=== PATIENT | female | born 1940 | race Caucasian/White ===

== ENCOUNTER → 2018-02-01 07:43 | Outpatient (CLI) | payer MEDICARE, OTHER, SELFPAY | PROVIDERS: PCP Family Medicine; Visit Provider Orthopaedic Surgery | DX: M25.512 Pain in left shoulder (principal); M75.112 Incomplete rotator cuff tear or rupture of left shoulder, not specified as traumatic; Z01.818 Encounter for other preprocedural examination ==

== ENCOUNTER → 2018-02-20 09:15 | Outpatient (CLI) | payer MEDICARE, OTHER, SELFPAY | PROVIDERS: PCP Family Medicine; Visit Provider Orthopaedic Surgery | DX: Z47.89 Encounter for other orthopedic aftercare (principal); M75.112 Incomplete rotator cuff tear or rupture of left shoulder, not specified as traumatic; J44.9 Chronic obstructive pulmonary disease, unspecified ==

== ENCOUNTER → 2018-03-20 11:10 | Outpatient (BNVA) | payer MEDICARE, OTHER, SELFPAY | PROVIDERS: PCP Family Medicine; Visit Provider Orthopaedic Surgery | DX: Z47.89 Encounter for other orthopedic aftercare (principal); M75.112 Incomplete rotator cuff tear or rupture of left shoulder, not specified as traumatic ==

== ENCOUNTER → 2018-05-01 11:01 | Outpatient (BNVA) | payer MEDICARE, OTHER, SELFPAY | PROVIDERS: PCP Family Medicine; Referring Provider Family Medicine; Visit Provider Orthopaedic Surgery | DX: Z47.89 Encounter for other orthopedic aftercare (principal); M75.112 Incomplete rotator cuff tear or rupture of left shoulder, not specified as traumatic; J44.9 Chronic obstructive pulmonary disease, unspecified ==

== ENCOUNTER → 2018-07-05 10:46 | Outpatient (BNVA) | payer MEDICARE, OTHER, SELFPAY | PROVIDERS: PCP Family Medicine; Referring Provider Family Medicine; Visit Provider Orthopaedic Surgery | DX: Z47.89 Encounter for other orthopedic aftercare (principal); M75.112 Incomplete rotator cuff tear or rupture of left shoulder, not specified as traumatic | CPT/HCPCS: 99213 ==

== ENCOUNTER 2018-12-27 11:15 | Outpatient (CLI) | payer MEDICARE, OTHER, SELFPAY ==
--- NOTE | 2018-12-27 11:07 | DI.RAD_ITS ---
SYMPTOM/DIAGNOSIS: PAIN WITH KNEELING, LOCALIZED SWELLING MEDIALLY LEFT KNEE: 12/27 Two views were obtained. There is moderate narrowing of the medial tibial femoral cartilaginous joint space. Small enthesophyte or soft tissue ossification seen at the superior patellar pole. No other significant bony abnormalities seen. 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
== END 2018-12-27 11:35 ==
PROVIDERS: PCP Family Medicine; Referring Provider Family Medicine; Visit Provider Orthopaedic Surgery
DX: M25.562 Pain in left knee (principal); M17.12 Unilateral primary osteoarthritis, left knee; J44.9 Chronic obstructive pulmonary disease, unspecified; Z96.651 Presence of right artificial knee joint; Z47.1 Aftercare following joint replacement surgery
CPT/HCPCS: 99213; 73560

== ENCOUNTER 2021-06-01 00:42 | Outpatient (CLI) | payer MEDICARE, OTHER, SELFPAY ==
--- OUTSIDE RECORDS SUMMARY | 2021-06-01 00:45 | XMS_ITS ---
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 Problem Hyperlipidemia E78.5 Active 49068 004 Problem Migraine G43.909 Active 08199941 Problem DM (diabetes E11.9 Active mellitus), type 2 Problem Hammer toe of left M20.42 Active 1 [id number] foot Problem Asthma J45.909 Active 213760450 Problem COPD (chronic J44.9 Active 357910 05 obstructive pulmonary disease) Problem Allergic rhinitis J30.9 Active 61 625942 Problem HTN (hypertension) I10 Active 3 6198373 Problem 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, 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 Problem Primary M19.072 Active 809288234 osteoarthritis of left foot ALLERGIES Substance Reaction Event Type Date Status blood transfusions hives Non Drug Allergy May, Activ e BEES anaphylaxis Non Drug Allergy May, Active walnuts rash in mouth Non Drug Allergy May, Active ENCOUNTERS Encounter Location Date Diagnosis [place] [facility] Aug, OFFICE [address] [place] [address] [facility] [address] [place] [address] Jun, [address]ICE [address] [place] [address] [facility] May, SOB (shortnes s of breath) [place] R06.02 and Asthm a J45.909 77872 [facility] 8 [facility] 15 Apr, 2020 Preop exam ination Z01.818 ; [address]ICE [address] DM (diabetes dandre litus), type [place], [place] 2 E11.9 ; Posthe rpetic [address]00 neuralgia B02.29 ; Migraine G43.909 ; HTN (h ypertension) I10 ; 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) J44.9 a nd Allergic rhinitis J30.9 [facility] Mar, [address]ICE [address] [place] [address] [facility] Jan, DM (diabet es mellitus), type [address]ICE [address] 2 E11.9 ; Posthe rpetic [place] neuralgia B02.29 ; Asthma 64091 J45.909 ; Hyperl ipidemia E78.5 ; Migraine G43.909 ; Chronic diarrhea K52.9 ; Left ankle pain M25.572 ; Left foot pain M 79.672 ; Osteoarthritis o f hand, right M19.041 an d HTN (hypertension) I 10 -[facility] Jan, DM (diabete s mellitus), type [place], [place] 2 E11.9 ; Posthe rpetic [address] neuralgia B02.29 ; Asthma J45.909 ; Hyperl ipidemia E78.5 ; Migraine G43.909 ; Chronic diarrhea K52.9 ; Left ankle pain M25.572 ; Left foot pain M 79.672 ; Osteoarthritis o f hand, right M19.041 an d HTN (hypertension) I 10 [facility] Dec, Bunion of left foot M21.612 [place] ; [place] [address] metatarsophalang eal joint of left foot M25.87 2 ; Hammer toe of left foot M20.42 ; Primary osteoart hritis of left foot M19.07 2 ; Post-traumatic osteoarthritis o f left ankle M19.172 and DM t ype 2 (diabetes [facility], type 2) E11.9 [facility] Dec, [place] [address] [facility] October, Bunion of left foot M21.612 [place] ; [place] [address] metatarsophalang eal joint of left foot M25.87 2 ; Hammer toe of left foot M20.42 ; Primary osteoart hritis of left foot M19.07 2 ; Post-traumatic osteoarthritis o f left ankle M19.172 and DM t ype 2 (diabetes [facility], type 2) E11.9 [facility] Nov, 2019 Left foot pain M 79.672 ; [place] Left ankle pain M25.572 and 567[address] Pain in left low er leg M79.662 [facility] 8 [facility] October, DM (diabet es mellitus), type [address]ICE [address] 2 E11.9 ; Posthe rpetic [place] neuralgia B02.29 ; Asthma 80382 J45.909 ; Hyperl ipidemia E78.5 ; Migraine G43.909 ; Chronic diarrhea K52.9 ; Left ankle pain M25.572 ; Left foot pain M 79.672 ; Osteoarthritis o f hand, right M19.041 an d HTN (hypertension) I 10 [facility] Oct, DM (diabete s mellitus), type [place], [place] 2 E11.9 ; Asthma J45.909 ; [address] Hyperlipidemia E 78.5 ; Migraine G43.909 and Chronic diarrhea K52.9 [facility] [address] [facility] Oct, [place] [address] [facility] 8 [facility] Aug, Trochanter ic bursitis of [address]ICE [address] right hip M70.61 and Trigger [place] finger of left h and M65.30 67648 [facility] 8 [facility] Jun, Postherpet ic neuralgia [address]ICE [address] B02.29 [place] [address] [facility] Jun, [address]ICE [address] [place] [address] [facility] 8 [facility] Jun, [address]ICE [address] [place] [address] [facility] Jun, Pos therpetic neuralgia [place] B02.29 [address] [facility] Jun, Manjula ngles B02.9 [place] [address] [facility] [address] [facility] Jun, [address]ICE [address] [place] [address] [facility] 8 [facility] May, DM (diabet es mellitus), type [address]ICE [address] 2 E11.9 ; Influe [place]za [place] [address] current visit Z2 3 ; Asthma J45.909 ; Hyperl ipidemia E78.5 ; Migraine G43.909 and Chronic diarrhea K52.9 [facility] Apr, Plantar fasciiti s of left [place] foot M72.2 and [place] of left [address] heel M79.672 [facility] 8 [facility] Apr, [address]ICE [address] [place] [address] [facility] Apr, Plantar fasciiti s of left [place] foot M72.2 and [place] of left [address]2705 heel M79.672 [facility] 8 [facility] Mar, Plantar fasciiti s of left [place] foot M72.2 and [place] of left 74759 heel M79.672 [facility] 8 [facility] Mar, Pain of left jo l M79.672 ; [place], [place] Acute left ankle pain 61732 M25.572 and Plan tar fasciitis of lef t foot M72.2 LPO-SPECIALTY TEAM [facility] Mar, [place] [address] [facility] 8 [facility] Jan, [address]ICE [address] [place] [address] [facility] 8 [facility] Dec, Toe pain, left M 79.675 and [place] Pain of left jo l M79.672 00780 [facility] 8 [facility] Dec, DM (diabetes dandre litus), type [place], [place] 2 E11.9 ; Toe pa in, left 53330 M79.675 and Onyc homycosis of great toe B35.1 [facility] 8 [facility] Dec, Chronic di arrhea K52.9 ; DM [address]ICE [address] (diabetes mellit us), type 2 [place] E11.9 ; Migraine G43.909 ; [address] Postherpetic yousif ralgia B02.29 ; Asthma J45.909 ; Hoarseness of vo ice R49.0 and Hyperlipidem ia E78.5 [facility] 8 [facility] October, [address]ICE [address] [place] [address] [facility] 8 [facility] Aug, Risk for f alls Z91.81 ; [address]ICE [address] eliezer screening [place] Z02.83 ; Chronic diarrhea 95124 K52.9 ; Alcohol screening Z13.89 ; DM (roger betes mellitus), type 2 E11.9 ; Migraine G43.909 ; Postherpetic yousif ralgia B02.29 ; Asthma J45.909 ; Hoarseness of vo ice R49.0 ; SOB (shortness o f breath) R06.02 and Hyper lipidemia E78.5 [facility] 8 [facility] May, OFFICE [address] [place] [address] [facility] 8 [facility] Mar, Chronic di arrhea K52.9 ; [address]ICE [address] Skin lesion L98. 9 ; DM [place] (diabetes mellit us), type 2 11577 E11.9 ; Migraine G43.909 ; Postherpetic yousif ralgia B02.29 ; Asthma J45.909 and Actinic keratosi s L57.0 [facility] 8 [facility] Dec, [address]ICE [address] [place] [address] [facility] 8 [facility] Dec, [address]ICE [address] [place] [address] [facility] OFF[facility] [address] [place] [address] October, [place] [address] [facility] 8 [facility] Aug, Skin lesio n L98.9 ; Chronic [address]ICE [address] diarrhea K52.9 ; DM [place] (diabetes mellit us), type 2 [address]39 E11.9 ; Migraine G43.909 ; Postherpetic yousif ralgia B02.29 ; Asthma J45.909 and Actinic keratosi s L57.0 [facility] Aug, DM (diabete s mellitus), type [place], [place] 2 E11.9 ; Chroni c diarrhea 99998 K52.9 ; Skin les ion L98.9 ; Migraine G43.909 ; Postherpetic yousif ralgia B02.29 and Asthm a J45.909 [facility] [address] [place] [address] Aug, DM (diabetes mellitus), type [place], [place] 2 E11.9 [address] [facility] [address] [facility] Aug, [place] [address] [facility] 8 [facility] Jul, [address]ICE [address] [place] [address] [facility] 8 [facility] Jul, [address]ICE [address] [place] [address] [facility] 8 [facility] Jun, Asthma J45 .909 ; Chronic [address]ICE [address] diarrhea K52.9 a nd DM type 2 [place] (diabetes mellit us, type 2) [address]9981 E11.9 [facility] [address] [place] [address] May, [place] [address] [facility] 8 [facility] May, [address]ICE [address] [place] [address] [facility] 8 [facility] Apr, Skin lesio n L98.9 and [address]ICE [address] Cellulitis L03.9 0 [place] [address] xxLAB STAFF [facility] Apr, [place] [address] Apr, [place] [address] Apr, [place] [address] [facility] 8 [facility] Apr, Skin lesio n L98.9 [address] [place] [address] [facility] 8 [facility] Mar, Encounter for drug screening [address]ICE [address] Z02.83 ; Risk fo r falls [place] Z91.81 ; Alcohol screening [facility] Z13.89 and Skin lesion L98.9 [facility] 8 [facility] Mar, Wart B07.9 [address] [place] [address] [facility] 8 [facility] Dec, Chronic di arrhea K52.9 ; DM [address]ICE [address] (diabetes mellit us), type 2 [place] E11.9 ; Migraine G43.909 ; [address] Postherpetic yousif ralgia B02.29 and Asthm a J45.909 [facility] 8 [facility] October, DM (diabet es mellitus), type [address]ICE [address] 2 [place]11.9 [place] [address] October, DM (diabete s mellitus), type [place] 2 E11.9 ; Chroni c diarrhea 38950 K52.9 ; Migraine G43.909 ; Postherpetic yousif ralgia B02.29 and Asthm a J45.909 [facility] 8 [facility] Aug, Chronic di arrhea K52.9 ; DM [address]ICE [address] (diabetes mellit us), type 2 [place] E11.9 ; Migraine G43.909 ; [address] Postherpetic yousif ralgia B02.29 and Asthm a J45.[address] Jul, [place] [address] Jul, DM (diabete s mellitus), type [place] 2 E11.9 ; Chroni c diarrhea 99254 K52.9 ; Migraine G43.909 ; Postherpetic yousif ralgia B02.29 and Asthm a J45.909 [facility] 8 [facility] May, [address]ICE [address] [place] [address] [facility] 8 [facility] Apr, Chronic di arrhea K52.9 ; [address]ICE [address] Migraine G43.909 ; DM [place] (diabetes mellit us), type 2 35473 E11.9 ; Postherp etic neuralgia B02.29 and Asthma J45.[address] Apr, Chronic roger rrhea K52.9 ; [place] G43.[place] [address] (diabetes mellit us), type 2 E11.9 [facility] 8 [facility] Jan, [address]ICE [address] [place] [address] [facility] 8 [facility] Jan, [address]ICE [address] [place] [address] [facility] 8 [facility] Dec, Chronic di arrhea K52.9 ; [address]ICE [address] Migraine G43.909 ; DM [place] (diabetes mellit us), type 2 42120 E11.9 and Posthe rpetic neuralgia B02.29 [facility] [address] [place] [address] Dec, Insurance cove rage problems [place] Z59.8 [address] [facility] [address] [place] [address] Dec, Insurance cove rage problems [place] Z59.8 [address] [facility] 8 [facility] Dec, Zoster B02 .9 ; DM (diabetes [address]ICE [address] mellitus), type 2 E11.9 ; [place] Chronic diarrhea K52.9 ; [address] Vaginal itching L29.8 ; Migraine G43.909 and Vaginal lesion N89.[address] 16 Dec, 2015 DM (diabete s mellitus), type [place] 2 E11.9 ; Zoster B02.9 and 02148 Chronic diarrhea K52.9 zzLPO-PR[facility] and PSYCH [facility] October, [place] [address] [facility] 8 [facility] October, [address]ICE [address] [place] [address] [facility] 8 [facility] Oct, Zoster B02 .9 ; DM (diabetes [address]ICE [address] mellitus), type 2 E11.9 and [place] Chronic diarrhea K52.[id number] [place] [address] [facility] 8 [facility] Oct, Zoster B02 .9 [address] [place] [address] [facility] 8 [facility] Oct, [address]ICE [address] [place] [address] [facility] 8 [facility] Oct, Zoster B02 .9 [address] [place] [address] Aug, [place] [address] [facility] 8 [facility] Aug, [address]ICE [address] [place], [place] [address] [place] [address] Aug, [place] [address] [facility] 8 [facility] Jul, [address]ICE [address] [place] [address] [facility] 8 [facility] Jul, Diarrhea R 19.7 [address] [place], [place] [address] [place] [address] Jul, Diarrhea R1 9.7 [place] [address] Jul, Diarrhea R1 9.7 [place] [address] Jul, Diarrhea R1 9.7 and DM type 2 [place] (diabetes mellit us, type 2) [address]16[address] E11.9 [facility] 8 [facility] Jul, [address]ICE [address] [place], [place] [address] [place] [address] PHYSICIAN OFFICE [facility] Jun, Roger rrhea R19.7 [place] [address] [facility] Jun, [place] [address] [place] [address] Jun, Diarrhea R1 9.7 [place] [address] [facility] 8 [facility] Jun, Diarrhea R 19.7 and DM type 2 [address] (diabetes mellit us, type 2) [place] E11.9 [address] [facility] 8 [facility] Apr, DM type 2 (diabetes [address]ICE [address] mellitus, type 2 ) [place]11[place]9 [place] [address] Apr, Hyperlipide arnav 272.4 ; [place] MIGRAINE 346.90 ; Peripheral 16473 neuropathy 356.9 ; Allergic rhinitis due to allergen 477.8 ; COPD (ch ronic obstructive pulm onary disease) 496 and Hyperglycemia R7 3.9 [facility] 8 [facility] Apr, Hyperlipid emia 272.4 ; [address]ICE [address] MIGRAINE 346.90 ; Peripheral [place] neuropathy 356.9 ; Allergic 67645 rhinitis due to allergen 477.8 ; COPD (ch ronic obstructive pulm onary disease) 496 and Hyperglycemia R7 3.9 [facility] 8 [facility] Dec, Radiculopa thy 729.2 [address] [place] [address] [facility] [address] [place] [address] Dec, Fozia k pain 724.5 [place] [address] [facility] 8 [facility] October, [address]ICE [address] [place] [address] [facility] 8 [facility] Oct, URI (upper respiratory [address]ICE [address] infection) 465.9 [place], [place] [address] [place] [address] [facility] 8 [facility] Oct, Hyperlipid emia 272.4 ; [address]ICE [address] MIGRAINE 346.90 ; Peripheral [place] neuropathy 356.9 ; Allergic 54273 rhinitis due to allergen 477.8 ; COPD (ch ronic obstructive pulm onary disease) 496 and Cataract of left eye 366.[address] Oct, [place] [address] [facility] [address] [place] [address] Aug, [place] [address] [facility] 8 [facility] Jul, [address]ICE [address] [place] [address] [facility] 8 [facility] Aug, Hyperlipid emia 272.4 ; [address]ICE [address] Cataract of both eyes 366.9 [place] ; MIGRAINE 346.9 0 ; [address] Peripheral neuro emma 356.9 ; Allergic rhini tis due to allergen 477.8 a nd COPD (chronic obstruc tive pulmonary diseas e) [address] Apr, Hyperlipide arnav 272.4 ; [place] MIGRAINE 346.90 ; Peripheral 77631 neuropathy 356.9 and Allergic rhiniti s due to allergen 477.8 [facility] Mar, [place] [address] [place] [facility] [address] [facility] Mar, [place] [address] [facility] 8 [facility] Jan, [address]ICE [address] [place] [address] [facility] 8 [facility] Jan, Hyperlipid emia 272.4 ; [address]ICE [address] MIGRAINE 346.90 ; Peripheral [place] neuropathy 356.9 and 97[address] Allergic rhiniti s due to allergen 477.8 [facility] Dec, [place] [address] [facility] Dec, [place] [address] LPO-SPECIALTY TEAM [facility] Dec, [place] [address] [facility] 8 [facility] October, [place] [address] [facility] 8 [facility] Aug, NEUROPATHY 355.9 ; 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 9 ORTHOPEDIC OFFICE [facility] Jun, [place] [address] ORTHOPEDIC OFFICE [facility] Jun, Left ankle p ain 719.47 [place] [address] [facility] 8 [facility] Jun, [address] [place] [address] [facility] 8 [facility] Apr, SOB 786.05 ; Hyperlipidemia [address]ICE [address] 272.4 [place] M[place]RAI [place] 346.90 [place] [address] [facility] 8 [facility] Apr, [address]ICE [address] [place] [address] xxRADIOLOGY [facility] Apr, [place] [address] Apr, [place] [address] Apr, [place] [address] [facility] 8 [facility] Apr, VACCIN FOR SINGL DIS NOS [address]ICE [address] V05.9 [place] [address] Apr, 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 [place] ; SOB 786.05 ; [address] Hyperlipidemia 2 72.4 and MIGRAINE 346.90 [facility] 8 [facility] Apr, SOB 786.05 ; Hyperlipidemia [address]ICE [address] 272.4 ; MIGRAINE 346.90 ; [place] truck terminal manager use of drug V58.69 01990 and NEUROPATHY 3 55.9 [facility] 8 [facility] Jan, [address]ICE [address] [place] [address] [facility] 8 [facility] Dec, [address]ICE [address] [place] [address] [facility] OFF[facility] October, [place] [address] [facility] [address] [place] [address] Aug, Bronchitis NOS 490 and [address]ICE [address] Wheezing 786.09 [place] [address] H[address] Aug, Hyperlipide arnav 272.4 and [place] LONG-TERM ANTI-I NFLAMTRY [address] Aug, Hyperlipide arnav 272.4 and [place] LONG-TERM ANTI-I NFLAMTRY [address]43[address] V58.64 POD-[address] Apr, [place] [address] Apr, [place] [address] POD-[address] Mar, FOOT PAIN 729.5 ; Plantar [place] fasciitis 728.71 [place] Pes [address] planovalgus, con genital 754.[address] [place] [address] Jan, [place] [address] [facility] [address] [place] [address] Jan, [address] [place] [address] [place] [address] [place] [address] Jan, PHYSICAL- ADULT V70.0 ; [address]ICE [address] Hyperlipidemia 2 72.4 ; ND [place] VAC STRPTCS PNEU MNI B V03.82 47721 ; ALLERGIC RHINI TIS NEC 477.8 ; Back wendy n 724.5 ; DTAP VACCINATION V06.1 ; MAMMO - SCREENIN G V76.12 ; MIGRAINE 346.90 and FOOT PAIN 729.5 [place] [facility] OFF[facility] [address] [place] [address] Dec, [place] [address] LPO-SPECIALTY TEAM [facility] Oct, [place] [address] [facility] [address] [place] [address] Oct, SINUSITIS, ACUTE 461.9 [address] [place] [address] [place] [facility] OFF[facility] [address] [facility] Aug, [place] [address] [facility] [address] [place] [address] Aug, Hyperlipid emia 272.4 ; [address]ICE [address] ALLERGIC RHINITI S NEC 477.8 [place] and Back pain 72 4.5 [address] [place] [facility] OFF[facility] Aug, [place] [address] [facility] Jun, Hyperlipide arnav 272.4 [place] [address] [facility] 8 [facility] Apr, [address] [place] [address] SURGERY [facility] Mar, [place] [address] SURGERY [facility] 2010 [place] [address] LPO-SPECIALTY TEAM [facility] 08 Dec, 2009 FAMILY HX-G I MALIGNANCY [place] V16.0 and Colon polyp, [address] history of V12.7 2 xxRADIOLOGY [facility] Dec, [place] [address] xxRADIOLOGY [facility] Dec, [place] [address] xxREHABILITATION [facility] Dec, [place] [address] [facility] 8 [facility] Dec, [address]ICE [address] [place] [address] xxRADIOLOGY [facility] 17 Dec, 2009 [place] [address] [facility] [address] [place] [address] Dec, Hyperlipid emia 272.4 [address] [place] [address] [facility] [address] [facility] 14 Dec, 2009 BENIGN HYP HT DIS W/O HF [place] 402.10 ; LONG-TE RM USE MEDS 91756 NEC V58.69 ; SCR EEN MAL NEOP-BLADDER V76 .3 ; MIGRAINE 346.90 ; Hyperlipidemia 2 72.4 ; Menopausal, jordin pause 627.2 ; LUMB/LUMBOSAC DISC DEGEN 722.52 ; DEGENER ATIVE JOINT DISEASE (OSTEOAR THRITIS) 715.90 ; Chest t ightness 786.59 and EKG I NTERP, pre op V72.81 [facility] [address] [place] [address] Dec, BENIGN HYP HT DIS W/O HF [address]ICE [address] 402.10 ; MIGRAIN E 346.90 ; [place] Hyperlipidemia 2 72.4 ; [address] Menopausal, jordin pause 627.2 ; LUMB/LUMBOSAC DISC DEGEN 722.52 ; DEGENER ATIVE JOINT DISEASE (OSTEOAR THRITIS) 715.90 ; Chest t ightness 786.59 ; PHYSICA L- ADULT V70.0 ; External Hemorrhoids 455.3 ; EKG INTE RP, pre op V72.81 ; LONG-TE RM USE MEDS NEC V58.69 ; SCR EEN MAL NEOP-BLADDER V76 .3 ; SCREEN MALIG NEOP-COLON V76.51 ; SCRN MAL REMY [place] AST NOS V76.10 and Neopl asm of uncertain behavi or of stomach, intesti lexi, and rectum 235.2 [facility] October, OFFICE [address] [place], [place] [id number] [place] [address] [facility] Mar, OFFICE [address] [place], [place] [id number] [place] [address] [facility] Dec, OFFICE [address] [place], [place] [id number] [place] [address] [facility] Dec, Allergic b ronchitis w/o OFFICE [address] mention of statu s [place] asthmaticus or a cute [address] exacerbation 493 .90 and ALLERGIC RHINITI S NEC 477.8 [facility] Dec, [address]ICE [address] [place], [place] [id number] [place] [address] [facility] Dec, Sore throa t (viral) NOS 462 [address] and Allergic bro nchitis w/o [place] mention [place] statu [place] [address] asthmaticus or a cute exacerbation 493 .90 [facility] Dec, Sore throat (viral) NOS 462 [place] [address] xxRADIOLOGY [address] [facility] Dec, [place] [address] [facility] Dec, OFFICE [address] [place], [place] [id number] [place] [address] [facility] October, [address]ICE [address] [place], [place] [id number] [place] [address] [facility] 8 [facility] October, Shortness of breath 786.05 [address] and HTN [Hyperte nsion] 401.9 [place], [place] [id number] [place] [address] [facility] 8 [facility] October, OFFICE [address] [place], [place] [id number] [place] [address] [facility] 8 [facility] [facility] October, Shortness of breath 786.05 ; OFFICE [address] BENIGN HYP HT DI S W/O HF [place], [place] [address] ; [place] [address] bronchitis w/o s tatus asthmaticus or a cute exacerbation 493 .90 ; FOOT PAIN 729.5 ; Con tusion of foot 924.20 and EKG INTERP, pre op V72.81 [facility] OFF[facility] [address] 11 Oct, 2008 [place] [address] [facility] [address] May, OFFICE [address] [place] [address] [facility] [address] 14 Apr, 2008 [address] [place] [address] [facility] [address] Mar, OFFICE [address] [place], [place] [id number] [place] [address] [facility] [address] Jan, BRONCHITIS , ACUTE 466.0 [address]ICE [address] [place] [address] [facility] [address] Jan, [address]ICE [address] [place] [address] [address] Dec, [place] [id number] [place] [address] [facility] [address] October, OFFICE [address] [place] [address] [facility] [address] October, [place] [id number] [place] [address] [facility] [address] October, PHYSICAL- ADULT V70.0 ; HTN [address]ICE [address] [Hypertension] 4 01.9 ; [place], [place] Hyperlipemia 272 .4 and KNEE [address] PAIN 719.46 [facility] [address] Aug, HTN [Hyper tension] 401.9 and [address]ICE [address] Hyperlipemia 272 .4 [place], [place] [id number] [place] [address] [facility] [address] Jun, URI [Upper respiratory OFFICE [address] infection] 465.9 [place], [place] [id number] [place] [address] [facility] [address] Oct, OFFICE [address] [place], [place] [address] [place] [address] [facility] [address] 10 Oct, 2006 [address] [place] [id number] [place] [address] [facility] [address] Aug, OFFICE [address] [place] [address] 16 Aug, 2006 [place] [id number] [place] [address] [facility] [address] Aug, [address]ICE [address] [place] [address] [facility] [address] Aug, Hyperlipid emia 272.4 [address]ICE [address] [place], [place] [address] [place] [address] [facility] [address] Aug, Spinal lyn nosis of lumbar OFFICE [address] region 724.02 ; [place], [place] Hyperlipidemia 2 72.4 and [address] [place] 346.90 [facility] [address] Aug, [address]ICE [address] [place] [address] [facility] [address] Aug, [address]ICE [address] [place] [address] [facility] [address] 22 Jul, 2006 [address] [place] [address] [facility] [address] 10 Jul, 2006 Spinal lyn nosis of lumbar OFFICE [address] region 724.02 ; [place], [place] Hyperlipidemia 2 72.4 and [address] [place] 346.[address] 20 Jun, 2006 [place] [address] [facility] [address] 15 Jan, 2006 [address] [place] [address] [facility] [address] 10 Dec, 2005 [address] [place] [address] [address] [address] 30 Oct, 2005 [place] [address] [address] 23 Oct, [address] [place] [address] [address] 19 Oct, 2005 [place] [address] [address] [address] 16 Oct, 2005 [place] [address] IMMUNIZATIONS Vaccine Route Administration Date Status Tdap STATE Adacel 7yrs or older of Unknown Feb 17, 2011 Administered age [age] Pneumococcal ADULT NONSTATE PCV13 Unknown November 17, 2014 Administered [id number] Influenza HISTORY (HIGH DOSE) IM Intramuscular Mar 19, 2015 A dministered Influenza HISTORY (HIGH DOSE) IM Intramuscular Mar 23, 2018 A dministered Influenza HISTORY IM Intramuscular Feb 25, 2017 Administered Influenza HISTORY Unknown Mar 27, 2019 Administered Zostavax NON STATE SC Subcutaneous Apr 13, 2012 Administered -Influenza (whole) NON state supply IM Intramuscular May 10 8 Administered Influenza FLUBLOK QUAD NONSTATE IM Intramuscular May 06, 2019 Administered Influenza HISTORY Unknown Mar 04, 2016 Administered Influenza HISTORY IM Intramuscular Mar 25, 2014 Administered Influenza HISTORY Unknown Mar 27, 2013 Administered Influenza HISTORY Unknown Apr 07, 2012 Administered Influenza HISTORY Unknown Apr 16, 2011 Administered TD HISTORY Unknown May 04, 2004 Administered Pneumococcal ADULT NONSTATE PPSV23 Unknown November 04, 2016 Administered [id number] Pneumococcal ADULT NONSTATE PPSV23 Unknown Feb 17, 2011 Administered [id number] SOCIAL HISTORY Qualifiers Date Never Smoker REASON FOR REFERRAL FUNCTIONAL STATUS PLAN OF CARE Activity Details Future Test BASEMET 70614219 Future Test CBC WITHOUT DIFF (Hemogram) [id number] Future Test HEMOGLOBIN A1C 77768309 Future Test TSH [id number] Future Test X Ankle L 3V [id number] Future Test X Foot L 3V [id number] Future Test X Tibula/Fibula L 2V 2281665 4 Future Test BASEMET [id number] Future Test Mammo: Screening 20091214 Future Test DEXA: Bone Density One or Mo re Sites CPT-72996 20091214 Future Test X ray: Chest 2 views 20091201 4 Future Test PFT study [id number] Future Test Cardio: Sestimibi,Dobutamine *[id number] VITAL SIGNS MEDICATIONS Medication Instructions Dosage Frequency Start End Date Duration Stat us Date predniSONE 20 Orally twice a 1 tablet 12h 19 Nov, 5 days Ac tive MG day 2019 Doxycycline Orally Twice a 1 capsule 12h Nov, 10 day(s) A ctive Hyclate 100 MG day 2019 PROCEDURES Procedure Date Ordered Result Body Site EGD 2015-09-22 GERD COLONOSCOPY (in procedures) 2015-09-22 Tubular adenoma reca ll 5 years SBIRT screening 2017-03-31 Negative Fall Risk Assessment Completed 2017-03-31 Low SBIRT screening 2018-09-17 N/A Fall Risk Assessment Completed 2018-09-17 N/A zzPREV: eye exam 2018-11-09 N/A zzPREV: DIABETES foot exam 2019-01-17 N/A Pulmonary Function Test 2019-05-21 HK RESULTS Name Result Date Reference Range EKG #1-IN OFFICE TODAY 2020-04-16 BASEMET 2020-02-20 GLUC 139 74-106 BUN 13 7-25 CREATS 0.69 0.60-1.20 EGFR >60 >=60 NA 141 136-144 K+ 4.0 3.5-5.1 CL 106 98-110 CO2 25 22-32 CA 9.0 8.6-10.3 CBC WITHOUT DIFF (Hemogram) 2020-02-20 WBC 3.8 4.0-12.0 RBC 4.8 4.5-6.0 HGB 13.7 12.5-16.0 HCT 42.7 37.0-47.0 MCV 89 78-100 MCH 28.5 27.0-32.0 MCHC 32.1 32.0-36.0 RDW 13.8 11.0-14.0 PLT 244 140-440 HEMOGLOBIN A1C 2020-02-20 HGBA1C 6.4 4.0-6.0 CMG 137 LIPID W/ CALCULATED LDL 2020-02-20 CHOL 152 0-200 TRIG 353 0-200 HDL 36 23-92 LDL CALC 45 5-99 CHOL/HDL 4.2 0.0-4.5 TSH 2020-02-20 TSH 1.197 0.450-5.330 X Foot L 3V 2019-11-14 See Below For Report X Ankle L 3V 2019-11-14 See Below For Report X Tibula/Fibula L 2V 2019-11-14 See Below For Report HEMOGLOBIN A1C 2019-10-18 HGBA1C 6.1 4.0-6.0 CMG 128 HEMOGLOBIN A1C 2019-05-06 HGBA1C 5.7 4.0-6.0 CMG 117 HEMOGLOBIN A1C 2019-01-14 HGBA1C 6.3 4.0-6.0 CMG 134 LDL (DIRECT) 2019-01-14 LDL 67 5-99 LIPID W/ CALCULATED LDL 2019-01-14 CHOL 170 0-200 TRIG 505 0-200 HDL 31 23-92 CHOL/HDL 5.5 0.0-4.5 BASEMET 2018-09-17 GLUC 170 74-106 BUN 12 7-25 CREATS 0.80 0.60-1.20 EGFR >60 >=60 NA 142 136-144 K+ 4.0 3.5-5.1 CL 104 98-110 CO2 27 22-32 CA 9.0 8.6-10.3 CBC WITH AUTO DIFF 2018-09-17 WBC 3.8 4.0-12.0 RBC 4.5 4.5-6.0 HGB 13.9 12.5-16.0 HCT 42.5 37.0-47.0 MCV 94 78-100 MCH 30.6 27.0-32.0 MCHC 32.7 32.0-36.0 RDW 13.0 11.0-14.0 PLT 212 140-440 MPV 10.4 7.4-11.0 ANC# 1.6 1.4-7.9 IG# 0.0 0.0-0.1 LY# 1.5 1.5-4.0 MO# 0.5 0.2-0.8 EO# 0.2 0.0-0.7 BA# 0.0 0.0-0.2 NE% 42.4 IG% 0.0 0.0-1.0 LY% 39.9 MO% 12.8 EO% 3.9 BA% 1.0 HEMOGLOBIN A1C 2018-09-17 HGBA1C 6.1 4.0-6.0 CMG 128 LDL (DIRECT) 2018-09-17 LDL 70 5-99 LIPID W/ CALCULATED LDL 2018-09-17 CHOL 172 0-200 TRIG 713 0-200 HDL 32 23-92 CHOL/HDL 5.4 0.0-4.5 TSH 2018-09-17 TSH 1.270 0.360-4.800 BASEMET 2018-03-19 GLUC 106 74-106 BUN 14 7-25 CREATS 0.91 0.60-1.20 EGFR 59 >=60 NA 139 136-144 K+ 4.2 3.5-5.1 CL 105 98-108 CO2 26 22-32 CA 9.2 8.6-10.3 CBC WITHOUT DIFF (Hemogram) 2018-03-19 WBC 4.6 4.0-12.0 RBC 4.4 4.5-6.0 HGB 13.4 12.5-16.0 HCT 40.9 37.0-47.0 MCV 93 78-100 MCH 30.4 27.0-32.0 MCHC 32.8 32.0-36.0 RDW 12.7 11.0-14.0 PLT 294 140-440 HEMOGLOBIN A1C 2018-03-19 HGBA1C 6.7 4.0-6.0 CMG 145 LIPID W/ CALCULATED LDL 2018-03-19 CHOL 172 0-200 TRIG 381 0-200 HDL 35 23-92 LDL CALC 61 5-99 CHOL/HDL 4.9 0.0-4.5 TSH 2018-03-19 TSH 0.810 0.360-4.800 MICROALBUMIN/CREAT RATIO (ACR) 2018-03-19 ALB/CREA RATIO 12.73 0.00-30.00 HEMOGLOBIN A1C 2017-08-25 HGBA1C 6.3 4.6-6.2 CMG 134 Path:Skin lesion 2017-08-11 Result FECAL FAT, QUAL 2017-04-19 FATS, NEUTRAL Normal FATS, TOTAL Normal FECAL ELASTASE 2017-04-19 FECAL FAT, QUAL 2017-04-18 FATS, NEUTRAL Normal FATS, TOTAL Normal FECAL ELASTASE 2017-04-18 Path:Skin lesion Result HEMOGLOBIN A1C 2016-10-31 HGBA1C 6.1 4.6-6.2 CMG 128 LIPID W/ CALCULATED LDL 2016-10-31 CHOL 164 0-200 TRIG 151 0-200 HDL 48 40-60 LDL CALC 86 5-99 CHOL/HDL 3.4 0.0-4.5 TSH 2016-10-31 TSH 1.098 0.360-4.800 MICROALBUMIN/CREAT RATIO (ACR) 2016-10-31 ALB/CREA RATIO 5.23 0.00-30.00 COMPMET 2016-10-19 ALBUMIN 4.2 ALKPHOS ALT 26 AST 23 BUN 15 CALCIUM 8.9 CHLORIDE 102 CARBON DIOXIDE 28 CREATININE STANDARDIZED 0.67 DIRECT BILIRUBIN 0.6 ESTIMATED GLOMERULAR FILTRATION >60 GLUCOSE 110 POTASSIUM 3.9 SODIUM 137 TOTAL BILIRUBIN 0.6 TOTAL PROTEIN 7.2 EGFR INTERPRETATION BUN/CREAT CORRECT AGE zzGLUCOSE zzCREATININE zzSODIUM zzPOTASSIUM zzCHLORIDE zzCO2 zzCALCIUM zzTOTAL PROTEIN zzALBUMIN zzTOTAL BILI zzALT zzAST zzALKALINE PHOS BUN*/CREAT* CT Abd/Pelvis w/ ([id number]) 2016-10-19 Image Accessible BASEMET XiSTAT IONIZ.CALCIUM BUN 15 CALCIUM 8.9 CHLORIDE 102 CARBON DIOXIDE 28 CREATININE STANDARDIZED 0.67 EGFR >60 GLUCOSE 110 POTASSIUM 3.9 SODIUM 137 EGFR INTERPRETATION BUN/CREAT 22.4 AGE BUN*/CREAT* 5-HIAA 24 HOUR URINE 2016-07-18 5-HIAA, URINE 3.6 Undefined 5-HIAA, URINE, 24HR 4.5 0.0-14.9 FECAL CALPROTECTIN 2016-07-18 Calprotectin, Fecal <16 0-120 IGA, IGG AND IGM QUANTITATION 2016-07-15 IMMUNOGLOBULIN G, QN, SERUM 794 700- 1600 IMMUNOGLOBULIN A, QN, SERUM 203 64-4 22 IMMUNOGLOBULIN M, QN, SERUM 100 26-2 17 TRYPTASE 2016-07-15 HEMOGLOBIN A1C 2016-07-15 HGBA1C 6.1 4.6-6.2 CMG 128 Path:Skin lesion 2016-04-18 Result CBC WITHOUT DIFF (Hemogram) 2016-04-14 WBC 5.0 4.0-12.0 RBC 4.6 4.5-6.0 HGB 14.2 12.5-16.0 HCT 42.7 37.0-47.0 MCV 93 78-100 MCH 30.9 27.0-32.0 MCHC 33.3 32.0-36.0 RDW 12.7 11.0-14.0 PLT 303 140-440 COMPMET 2016-04-14 GLUC 90 74-106 BUN 15 7-18 CREATS 0.60 0.55-1.30 EGFR >60 >=60 NA 140 136-144 K+ 4.3 3.7-5.0 CL 103 98-108 CO2 32 22-32 CA 8.7 8.5-10.1 TP 6.8 6.5-8.1 ALB 3.8 3.4-5.0 TBIL 0.4 0.3-1.2 DBIL 0.1 0.0-0.2 ALKP 102 46-116 AST 24 15-37 ALT 41 13-78 CRP-INFLAM 2016-04-14 CRP <0.2 0.0-0.9 HEMOGLOBIN A1C 2016-04-14 HGBA1C 6.1 4.6-6.2 CMG 128 SED RATE 2016-04-14 ESR 11 0-30 CBC WITHOUT DIFF (Hemogram) 2015-12-17 WBC 5.3 4.0-12.0 RBC 4.5 4.5-6.0 HGB 13.7 12.5-16.0 HCT 39.3 37.0-47.0 MCV 87 78-100 MCH 30.4 27.0-32.0 MCHC 34.9 32.0-36.0 RDW 13.0 11.0-14.0 PLT 301 140-440 COMPMET 2015-12-17 GLUC 116 74-106 BUN 12 7-18 CREATS 0.74 0.55-1.30 EGFR >60 >=60 NA 143 136-144 K+ 3.8 3.7-5.0 CL 108 98-108 CO2 25 22-32 CA 8.5 8.5-10.1 TP 6.6 6.5-8.1 ALB 3.8 3.4-5.0 TBIL 0.4 0.3-1.2 DBIL 0.1 0.0-0.2 ALKP 100 46-116 AST 25 15-37 ALT 35 13-78 HEMOGLOBIN A1C 2015-12-17 HGBA1C 6.2 4.6-6.2 CMG 131 TSH 2015-12-17 TSH 0.693 0.360-4.800 Path:Colon 2015-09-22 Findings VITAMIN B12 2015-09-14 CRP-INFLAM 2015-09-14 CRP 0.1 0.0-0.9 CRYPTOSPORIDIUM ANTIGEN 2015-09-14 FECAL FAT, QUAL 2015-09-14 FATS, NEUTRAL Normal FATS, TOTAL Normal FECAL LACTOFERRIN 2015-09-14 FOLATE 2015-09-14 FOL 16.20 >=8.60 GASTRIN 2015-09-14 SOMATOSTATIN 2015-09-14 GROWTH HORMONE, SERUM 0.5 0.0-10.0 VIP,PLASMA (Vasoactive Intestinal 2015-09-14 Polypeptide) SED RATE 2015-09-14 ESR 11 0-30 SELENIUM, BLOOD 2015-09-14 SELENIUM 99 79-326 CELIAC DISEASE COMPREHENSIVE 2015-09-14 Gliadin Abs, IgA 7 0-19 Gliadin Abs, IgG 2 0-19 T-TRANSGLUTAMINASE (TTG) IGA <2 0-3 T-TRANSGLUTAMINASE (TTG) IGG 2 0-5 ENDOMYSIAL ANTIBODY IGA Negative Negative IMMUNOGLOBULIN A, QN, SERUM 192 64-4 22 CDIFF TOXIN A/B 2015-08-28 CDIFFTOX NEGATIVE NEGATIVE CDIFF COMMON ANTIGEN 2015-08-28 CDIFFAG NEGATIVE NEGATIVE O&P ROUTINE 2015-08-28 OVA + PARASITE EXAM Final report RESULT 1 NOCP1 CULTURE STOOL 2015-08-28 Path:Other 2015-08-10 O&P ROUTINE 2015-07-09 OVA + PARASITE EXAM Final report RESULT 1 NOCP1 CDIFF TOXIN A/B 2015-07-08 CDIFFTOX NEGATIVE NEGATIVE CDIFF COMMON ANTIGEN 2015-07-08 CDIFFAG NEGATIVE NEGATIVE STOOL WBC 2015-07-08 STWBC NEGATIVE NEGATIVE CULTURE STOOL 2015-07-08 OCCULT BLOOD GUIAIC TRIPLE SCREEN 2015-07-02 (FOBT) (green card) OCCBL-T NEGATIVE NEGATIVE GLUCOSE POINT OF CARE 2015-06-19 GLUCOSE 93 74-118 COMMENT1 HEMOGLOBIN A1C 2015-04-15 HGBA1C 7.5 4.6-6.2 CMG 169 LDL (DIRECT) 2015-04-15 LDL 122 5-99 BUN 2014-10-14 BUN 16 7-18 CREATININE W EGFR 2014-10-14 CREATS 0.52 0.60-1.30 EGFR >60 >=60 MULTIPLE LABS 2014-10-09 ALT 2013-04-15 ALT 34 13-78 LIPID W/ CALCULATED LDL 2013-04-15 CHOLESTEROL 189 0-200 TRIGLYCERIDE 210 0-200 HDL 39 40-60 LDL CALCULATION 108 5-99 CHOL/HDL 4.8 0.0-4.5 MR Brain w + w/o (*[id number]) 2012-12-21 Image Accessible BUN 2012-12-14 BUN 17 7-18 CREATININE W EGFR 2012-12-14 CREATININE STANDARDIZED 0.71 0.60-1.3 0 ESTIMATED GLOMERULAR FILTRATION >60 >=60 X ray: Ankle, left 2012-08-07 X ray: Ankle, left 2012-07-10 X ray: Ankle 3 Views 2012-07-02 BASEMET 2012-06-10 GLUCOSE 118 74-106 BUN 17 7-18 CREATININE STANDARDIZED 0.59 0.60-1.3 0 ESTIMATED GLOMERULAR FILTRATION >60 >=60 SODIUM 140 136-144 POTASSIUM 4.0 3.7-5.0 CHLORIDE 103 98-108 CARBON DIOXIDE 30 22-32 CALCIUM 8.9 8.5-10.1 CBC WITH AUTO DIFF 2012-06-10 WHITE BLOOD COUNT 5.5 4.0-12.0 RED CELL COUNT 4.4 4.5-6.0 HEMOGLOBIN 13.4 12.5-16.0 HEMATOCRIT 39.4 37.0-47.0 MEAN CORPUSCULAR VOLUME 89 78-100 MEAN CORPUSCULAR HEMOGLOBIN 30.2 27.0 -32.0 MEAN CORPUSCULAR HGB CONC. 34.0 32.0- 36.0 RED CELL DISTRIBUTION WIDTH 12.6 11.0 -14.0 PLATELET 339 140-440 MEAN PLATELET VOLUME 8.9 7.4-11.0 NEUTROPHIL % 58.9 45.0-75.0 LYMPHOCYTE % 25.8 20.0-50.0 MONOCYTE % 11.7 2.0-10.0 EOSINOPHIL % 3 0-6 BASOPHIL % 1 0-1 ABSOLUTE NEUTROPHIL COUNT AUTOMATED 3.3 1.4-7.9 INFLUENZA A/B 2012-06-10 X ray: Chest 2012-06-10 BASEMET 2012-04-13 GLUCOSE 80 74-106 BUN 16 7-18 CREATININE STANDARDIZED 0.54 0.60-1.3 0 ESTIMATED GLOMERULAR FILTRATION >60 SODIUM 140 136-144 POTASSIUM 4.5 3.7-5.0 CHLORIDE 104 98-108 CARBON DIOXIDE 30 22-32 CALCIUM 9.3 8.5-10.1 CBC WITHOUT DIFF (Hemogram) 2012-04-13 WHITE BLOOD COUNT 4.5 4.0-12.0 RED CELL COUNT 4.7 4.5-6.0 HEMOGLOBIN 13.7 12.5-16.0 HEMATOCRIT 42.0 37.0-47.0 MEAN CORPUSCULAR VOLUME 90 78-100 MEAN CORPUSCULAR HEMOGLOBIN 29.3 27.0 -32.0 MEAN CORPUSCULAR HGB CONC. 32.6 32.0- 36.0 RED CELL DISTRIBUTION WIDTH 12.6 11.0 -14.0 PLATELET 299 140-440 LIVER FUNCTION TESTS 2012-04-13 TOTAL PROTEIN 7.2 6.5-8.1 ALBUMIN 4.2 3.4-5.0 TOTAL BILIRUBIN 0.4 0.3-1.2 DIRECT BILIRUBIN 0.1 0.0-0.2 ALKALINE PHOSPHATASE 124 50-147 AST 22 15-37 ALT 43 13-78 LIPID W/ CALCULATED LDL 2012-04-13 CHOLESTEROL 192 0-200 TRIGLYCERIDE 242 0-200 HDL 38 40-60 LDL CALCULATION 106 CHOL/HDL 5.1 0.0-4.5 TSH 2012-04-13 THYROID STIMULATING HORMONE 1.505 0.36 0-4.800 X ray: Chest 2 views 2012-04-18 Cardio:Echo,Exercise Stress 2012-04-18 ([id number]) PFT with + without [id number] BASEMET 2011-09-08 GLUCOSE 93 74-118 BUN 18 8-26 CREATININE STANDARDIZED 0.70 0.50-1.1 5 ESTIMATED GLOMERULAR FILTRATION >60 SODIUM 140 136-144 POTASSIUM 4.3 3.7-5.0 CHLORIDE 105 101-111 CARBON DIOXIDE 28 22-32 CALCIUM 8.9 8.8-10.3 CBC WITHOUT DIFF (Hemogram) 2011-09-08 WHITE BLOOD COUNT 3.6 4.0-12.0 RED CELL COUNT 4.5 4.5-6.0 HEMOGLOBIN 13.4 12.5-16.0 HEMATOCRIT 40.4 37.0-47.0 MEAN CORPUSCULAR VOLUME 90 78-100 MEAN CORPUSCULAR HEMOGLOBIN 29.8 27.0 -32.0 MEAN CORPUSCULAR HGB CONC. 33.2 32.0- 36.0 RED CELL DISTRIBUTION WIDTH 12.9 11.0 -14.0 PLATELET 264 140-440 LIVER FUNCTION TESTS 2011-09-08 TOTAL PROTEIN 6.6 6.5-8.1 ALBUMIN 3.7 3.5-5.0 TOTAL BILIRUBIN 0.6 0.3-1.2 DIRECT BILIRUBIN 0.1 0.1-0.5 ALKALINE PHOSPHATASE 87 38-126 AST 22 15-41 ALT 29 14-54 LIPID W/ CALCULATED LDL 2011-09-08 CHOLESTEROL 187 0-200 TRIGLYCERIDE 144 88-142 HDL 36 39-96 LDL 127 5-99 CHOL/HDL 5.2 0.0-4.5 X ray: Hip, right 2011-08-05 UA DIPSTICK ONLY-with CPE/ICC COLOR yellow CLARITY SPECIFIC GRAVITY 1.005 GLUCOSE neg BILIRUBIN neg KETONES neg BLOOD neg PH 6.5 PROTEIN neg UROBILINOGEN 0.2 LEUKOCYTES large NITRITES neg Mammo: Screening X ray: Heel 2010-12-14 X ray: Chest ALT 2010-07-01 ALT 27 14-54 AST 2010-07-01 AST 23 15-41 LIPID W/ CALCULATED LDL 2010-07-01 CHOLESTEROL 176 0-200 TRIGLYCERIDE 148 88-142 HDL 48 39-96 LDL 107 5-99 CHOL/HDL 3.7 0.0-4.5 COLONOSCOPY,a X ray: Wrist, left Mammo: Screening DEXA: Bone Density One or More Sites CPT-74949 X ray: Chest 2 views PFT study [id number] CBC WITH AUTO DIFF 2009-12-14 WHITE BLOOD COUNT 5.0 4.0-12.0 RED CELL COUNT 4.5 4.5-6.0 HEMOGLOBIN 13.7 12.5-16.0 HEMATOCRIT 40.2 37.0-47.0 MEAN CORPUSCULAR VOLUME 89 78-100 MEAN CORPUSCULAR HEMOGLOBIN 30.3 27.0 -32.0 MEAN CORPUSCULAR HGB CONC. 34.0 32.0- 36.0 RED CELL DISTRIBUTION WIDTH 12.2 11.0 -14.0 PLATELET 261 140-440 MEAN PLATELET VOLUME 7.7 7.4-11.0 NEUTROPHIL % 52.3 45.0-75.0 LYMPHOCYTE % 34.8 20.0-50.0 MONOCYTE % 9.3 2.0-10.0 EOSINOPHIL % 3 0-6 BASOPHIL % 1 0-1 ABSOLUTE NEUTROPHIL COUNT AUTOMATED 2.7 1.4-7.9 COMPMET 2009-12-14 GLUCOSE 88 74-118 BUN 18 8-26 CREATININE STANDARDIZED 0.69 0.50-1.1 5 ESTIMATED GLOMERULAR FILTRATION >60 SODIUM 140 136-144 POTASSIUM 4.1 3.7-5.0 CHLORIDE 107 101-111 CARBON DIOXIDE 28 22-32 CALCIUM 9.5 8.8-10.3 TOTAL PROTEIN 7.0 6.5-8.1 ALBUMIN 4.4 3.5-5.0 TOTAL BILIRUBIN 0.5 0.3-1.2 DIRECT BILIRUBIN 0.1 0.1-0.5 ALKALINE PHOSPHATASE 118 38-126 AST 20 15-41 ALT 28 14-54 LIPID W/ CALCULATED LDL 2009-12-14 CHOLESTEROL 209 0-200 TRIGLYCERIDE 220 88-142 HDL 36 39-96 LDL 134 5-99 CHOL/HDL 5.8 0.0-4.5 Occult Blood Random-DIAGNOSTIC (NON 2009-12-14 SCREENING) Occult Blood Random Neg OCCULT BLOOD UA DIPSTICK ONLY-with CPE/ICC 2009-12-14 COLOR lt yellow CLARITY SPECIFIC GRAVITY 1.030 GLUCOSE neg BILIRUBIN neg KETONES neg BLOOD neg PH 5.0 PROTEIN neg UROBILINOGEN 0.2 LEUKOCYTES small NITRITES neg EKG #1-IN OFFICE TODAY X ray: Shoulder, right RAPID STREP PLATE 2008-12-08 Cardio: Sestimibi,Dobutamine*[id number] X ray: Foot, right X ray: Chest 2 views PT/INR 2007-12-11 PT INR PT-INR PT-INR Interp Goal INR range GOAL INR RANGE TABLET SIZE AVG.QD DOSE NEW AVG.QD DOSE NEXT INR DUE UA DIPSTICK ONLY-with CPE/ICC 2007-11-02 COLOR yellow CLARITY SPECIFIC GRAVITY 1.005 GLUCOSE neg BILIRUBIN neg KETONES neg BLOOD neg PH 6.0 PROTEIN neg UROBILINOGEN 0.2 LEUKOCYTES trace NITRITES pos ALT 2007-11-02 ALT 25 14-54 AST 2007-11-02 AST 24 15-41 BASEMET 2007-11-02 BUN 18 8-26 eGFR >60 - Creatinine-S 0.65 0.50-1.15 Sodium 139 136-144 Potassium 4.0 3.6-5.1 Chloride 104 101-111 Total CO2 28 22-32 Calcium 9.1 8.9-10.3 CBC WITH AUTO DIFF 2007-11-02 WBC@L 3.8 4.0-12.0 RBC@L 4.60 4.5-6.0 HGB@L 14.0 12.5-16.0 HCT@L 41.1 37.0-47.0 MCV@L 89.4 78-100 MCH@L 30.4 27.0-32.0 MCHC@L 34.1 32.0-36.0 RDW@L 11.9 11.0-14.0 PLT@L 296 140-440 MPV@L 7.3 7.4-11.0 NE%@L 52.4 45-75 LY%@L 36.1 20-50 MO%@L 7.5 2-10 EO%@L 3.3 0-6 BA%@L 0.7 0-1 ANC#@L 2.0 - GLUCOSE FASTING 2007-11-02 Gluc Fasting 95 74-115 LDL (DIRECT) 2007-11-02 LDL Direct 113.8 5-99 LIPID W/ CALCULATED LDL 2007-11-02 Cholesterol 202 0-200 Cholesterol 202 0-200 Triglyceride 288 88-142 Triglyceride 288 88-142 HDL Cholesterol 43 39-96 HDL Cholesterol 43 39-96 CHOL/HDL Ratio- 4.7 0-4.5 TSH 2007-11-02 TSH 1.256 0.34-5.60 Mammo: Screening 2007-11-02 GLUCOSE FASTING Gluc Fasting 91 74-115 TRIGLYCERIDE Triglyceride 475 74-118 ALT ALT 15 14-54 AST AST 14 15-41 LIPID W/ CALCULATED LDL Cholesterol 207 0-200 Cholesterol 207 0-200 Triglyceride 400 74-118 Triglyceride 400 74-118 HDL Cholesterol 44 39-96 HDL Cholesterol 44 39-96 LDL Direct 82.7 5-99 LDL Direct 82.7 5-99 CHOL/HDL Ratio- 4.7 0-4.5 Mammo: Screening UA DIPSTICK ONLY-DIAGNOSTIC Color yellow Clarity Specific [place] 1.010 Glucose. neg Bilirubin neg Ketones neg Blood neg PH 7.5 Protein neg Urobilinogen 0.2 Nitrite neg Leukocytes neg ALT ALT ALT ALT* AST AST 22 AST* CHOLESTEROL CHOLESTEROL 170 TSH THYROID STIMULATING HORMONE 1.748 ALT ALT ALT ALT* AST AST 20 AST* CBC WITH AUTO DIFF CORRECT ANC WBC 4.5 HGB 14.5 HCT 41.7 PLATELET 304 RBC 4.75 MCV 87.8 MCH 30.5 MCHC 34.8 RDW 12.1 MPV 7.2 ANC 2.6 #IG #LYMPH #EOS #MONO #BASO NEUTROPHIL % 56.0 IG% LYMPHOCYTE % 30.8 MONOCYTE % 7.6 EOSINOPHIL % 4.9 BASOPHIL % 0.7 ATYP LYMPH PLT MORPH PROMYELO MACRO MICRO NRBC HYPO BLAST ANISO BAND BASO EOS LYMPH META MONO MYELO POIK RBC MORPH SEG MANUAL DIFF #IMM GRAN %IMM GRAN GLUCOSE GLUCOSE Glucose GLUCOSE 97 LIPID W/ CALCULATED LDL CHOLESTEROL 215 TRIGLYCERIDE 693 HDL 34 LDL CALC LDL DIRECT 81 CHOL/HDL zzCholesterol zzHdl zzTriglycerides zzChol/HDL LDL CALC* CREATININE Creatinine 0.8 EGFR ALT ALT ALT ALT* AST AST 18 AST* BUN BUN BUN 18 BUN* CBC WITH AUTO DIFF CORRECT ANC WBC 4.2 HGB 13.4 HCT 37.8 PLATELET 239 RBC 4.14 MCV 91.2 MCH 32.5 MCHC 35.6 RDW 11.6 MPV 7.7 ANC 2.6 #IG #LYMPH #EOS #MONO #BASO NEUTROPHIL % 60.7 IG% LYMPHOCYTE % 24.9 MONOCYTE % 9.9 EOSINOPHIL % 3.8 BASOPHIL % 0.7 ATYP LYMPH PLT MORPH PROMYELO MACRO MICRO NRBC HYPO BLAST ANISO BAND BASO EOS LYMPH META MONO MYELO POIK RBC MORPH SEG MANUAL DIFF #IMM GRAN %IMM GRAN GLUCOSE GLUCOSE Glucose GLUCOSE 85 LIPID W/ CALCULATED LDL CHOLESTEROL 184 TRIGLYCERIDE 366 HDL 34 LDL CALC LDL DIRECT 84 CHOL/HDL zzCholesterol zzHdl zzTriglycerides zzChol/HDL LDL CALC* LYTES CHLORIDE 103 CARBON DIOXIDE 28 POTASSIUM 3.7 SODIUM 139 SODIUM* POTASSIUM* CHLORIDE* CO2* LEAD WHOLE BLOOD Specimen Lead Whole Blood <5 TSH THYROID STIMULATING HORMONE 1.72 LIVER FUNCTION TESTS ALBUMIN 3.9 ALKALINE PHOSPHATASE 105 ALT 39 AST 15 DIRECT BILIRUBIN 0.1 TOTAL BILIRUBIN 0.6 TOTAL PROTEIN 6.7 zzTOTAL BILI TOTAL PROTEIN* ALBUMIN* TOTAL BILI* DIRECT BILI* ALT* AST* ALKALINE PHOS* LIPID W/ CALCULATED LDL CHOLESTEROL 205 TRIGLYCERIDE 408 HDL 43 LDL CALC LDL DIRECT CHOL/HDL zzCholesterol zzHdl zzTriglycerides zzChol/HDL LDL CALC* GLUCOSE GLUCOSE Glucose GLUCOSE 85 LIVER FUNCTION TESTS ALBUMIN 4.1 ALKALINE PHOSPHATASE 99 ALT 45 AST 20 DIRECT BILIRUBIN 0.1 TOTAL BILIRUBIN 0.3 TOTAL PROTEIN 6.6 zzTOTAL BILI TOTAL PROTEIN* ALBUMIN* TOTAL BILI* DIRECT BILI* ALT* AST* ALKALINE PHOS* LIPID W/ CALCULATED LDL CHOLESTEROL 168 TRIGLYCERIDE HDL 43 LDL CALC LDL DIRECT CHOL/HDL zzCholesterol zzHdl zzTriglycerides zzChol/HDL LDL CALC* LIVER FUNCTION TESTS ALBUMIN 3.8 ALKALINE PHOSPHATASE 92 ALT 43 AST 19 DIRECT BILIRUBIN 0.1 TOTAL BILIRUBIN 0.7 TOTAL PROTEIN 6.3 zzTOTAL BILI TOTAL PROTEIN* ALBUMIN* TOTAL BILI* DIRECT BILI* ALT* AST* ALKALINE PHOS* LIPID W/ CALCULATED LDL CHOLESTEROL 235 TRIGLYCERIDE HDL 28 LDL CALC LDL DIRECT CHOL/HDL zzCholesterol zzHdl zzTriglycerides zzChol/HDL LDL CALC* HEPATITIS ACUTE PROFILE HEP B SURFACE AG Negative HEP B CORE AB Negative HEP A AB IGM HEP C AB Negative UA-DIP W/REFLEX SOURCE BILIRUBIN Negative BLOOD Negative CLARITY Clear COLOR Yellow GLUCOSE Negative KETONES Negative LEUKOCYTES Negative NITRITES Negative PH 5.5 PROTEIN Negative SPECIFIC GRAVITY 1.025 UROBILINOGEN 0.2 UROBILINOGEN CBC WITH AUTO DIFF CORRECT ANC WBC HGB HCT PLATELET RBC MCV MCH MCHC RDW MPV ANC #IG #LYMPH #EOS #MONO #BASO NEUTROPHIL % IG% LYMPHOCYTE % MONOCYTE % EOSINOPHIL % BASOPHIL % ATYP LYMPH PLT MORPH PROMYELO MACRO MICRO NRBC HYPO BLAST ANISO BAND BASO EOS LYMPH META MONO MYELO POIK RBC MORPH SEG MANUAL DIFF #IMM GRAN %IMM GRAN FERRITIN Ferritin FERRITIN 99 LIVER FUNCTION TESTS ALBUMIN 4.2 ALKALINE PHOSPHATASE 87 ALT 114 AST 42 DIRECT BILIRUBIN 0.1 TOTAL BILIRUBIN 0.4 TOTAL PROTEIN 6.6 zzTOTAL BILI TOTAL PROTEIN* ALBUMIN* TOTAL BILI* DIRECT BILI* ALT* AST* ALKALINE PHOS* LIPID W/ CALCULATED LDL CHOLESTEROL 191 TRIGLYCERIDE HDL 43 LDL CALC LDL DIRECT CHOL/HDL zzCholesterol zzHdl zzTriglycerides zzChol/HDL LDL CALC* LYTES CHLORIDE 103 CARBON DIOXIDE 27 POTASSIUM 4.2 SODIUM 138 SODIUM* POTASSIUM* CHLORIDE* CO2* REASON FOR VISIT 6 month f/u , sob, cough, , Pre op with EKG [place] 04/21/20 ok AC, Medications reviewed w/pt,med. list is correct, No medication refills needed at this time., severe shoulder pain/rotator cuff, 3 MO F/U, ok with [facility] Pt states has a rash under belly for the past couple of weeks., Pt states her head has been itchy for the entire summer., Medications reviewed w/pt,med. list is correct, Medication refills needed for the following: Montelukast Sodium , LAB, Left ankle f/u, 10 wk, Pt states Lt ankle 'hurts swells up", pt indicating on top of left foot"-sd, Pt states has " a big garden, is never off my feet"-sd, Pt states "a grinding sensation, moving ankle side to side"-sd, 10 week f/u,r/s 01/21, 10 week f/u , appt r/s with WS, LEft ankle pain referral done, last seen by LSS on 05/01/19 for Plantar fasciitis L foot-KG, pt states she is here for left foot and leg swelling and pain pt believes it is more than plantar fasciitis-KG, CONTACT PT might need xrays, 3 MO F/U, Pt states her L foot and leg are very painful, Pt states her hands are painful also, Shingrix- $148.00, Medications reviewed w/pt,med. list is correct- SM, No medication refills needed at this time.,3 month follow up , labs, Spiriva refill, 3 MO F/U, spoke with , appt rs 09/13/2019 BENNY , cortizone shot, Pt states she has been having pain in her R hip , Pt states she was hoping for an injection today, Pt states her L middle finger has been painful too, Medications reviewed w/pt,med. list is correct- SM, No medication refills needed at this time., Pt states 5- 6/10 shingles pain, No medication refills needed at this time., pain, Shingles pain not getting better, shingles pain, shingles pain, Patient states she had shingles on her back a long time ago. Every once in awhile it flares up. Has tried lidocaine patches, doesnt help., Patient states this flare up started a week ago. Trouble sleepingand doing activities., Medications reviewed w/pt,med. list is correct, Medication refills needed forthe following: gabapentin ([facility]), severe pain, 4 mo f/u, Pt states she wants her Cholesterol checked due to family history , Medication refills needed for the following: Singulair, Pt states she would like the Prevnar vaccine, Pt states she feels like she is having hot flashes , pantar fasciitis and heel pain f/u, referral done, patient last seen by LSS on 04/02/2019 for plantar fasciitis of the left foot - cp, pt to cont. wearing camwalker until next visit and home exercises, pt has been wearing the camwalker boot. mrr, pt states she does not go naif foot anymore. mrr, pt staes she hit her ankle 03/09 with a chainsaw. mrr, pt here for plantar fasciitis.. mrr, Pt had xrays taken here afew weeks ago. mrr, refill-breo and jarediva, L HEEL PAIN, referral done, last seen by LSS on 03/21/19 for Plantar Fasciitis-KG, to wear camwalker boot/dispensed at last visit, Patient states she didn'twear the boot all the time, wore it around the house. If she went anywhere she couldn't wear it, it hurt her ankle from rubbing., injection, referral done, pt last seen by LS on 03/07/19 for left foot pain-MR, pt advised to continue stretches and icing foot at home, take otc tylenol as needed, and continue wearing alimeds-MR, pt received steroid injection at last visit which provided immediate relief-MR, pt states she is here to get another steroid injection today, pt states that her left heel feels like she is stepping on a spike, pt states that the last steroid injection helped for a couple of daysbut then the pain came back, PAIN L FOOT, patient called on 02/27/19 complaining that she is unable stand and heel really hurts , patient was last seen by LSS on 01/25/19 for f/u on left hallux removal ,home stretches, handout also given along with size 4 alimeds, Pt states pain in left foot started about a month ago, does not recall injuring it, States her ankles swells, has been using crutches, no xrays have been done, Refill Omeprazole, Left foot pain,unable to stand, last seen by LSS on 01/25/19 for follow up L great toenail removal/L foot pain, dispensed [facility] at last visit, left foot pain andankle swelling, 1 WK F/U Left hallux removal, referral done, Patient last seen 01/17/19 for left hallux removal, Patient is a diabetic, Patient advised to apply bacitracin, dressing and epsom salt soaksdaily, patient states she is here for a follow up on her left great toenail removal, Patient states that it is good, patient states that her heel on her left foot hurts, Left hallux removal, Referral Done, Pt last seen by HG on 09/21/12 for "burning feet.", Patient phoned in on 01/16/19 stating she needs her left big toe nail removed and couldn't wait until next week, patient is diabetic., Needs annual DM foot exam today., 4 month follow up, Notes from Dr. Saenz saying shouldn't be on propanolol, been breaking pills in half, no refills needed , omeprazole script , 6 mo f/u , Pt states she would like to talk about her breathing today- Still wheezy, Pt states she is still very SOB , Pt states they tried her on prednisone but she was unable to sleep , Medications reviewed w/pt,med. list is correct- SM, Medication refills needed for the following: Gabapentin, multiple refills , 6 mo f/u , Pt states she has a lack of ambition to do anything , Pt states at the begining of March she had she L shoulder worked on , Medications reviewed w/pt,med. list is correct- SM, No medication refills needed at this time., latanoprost refill, Continuing headache, Headache, 3 mo f/u , pt has ringing in herright ear , refill needed for gabapentin , pt would like to disucss her neck biopsy, labs, test strips , overdue lab , refill-gabapentin, 6 mo f/u , pt has no concens today, refill needed for gabapentin, Multiple refills, copy of path, 8 day f/u , Pt has no concerns today, Stool sample , LAB SPEC, [facility], 30 mins per JF, Hermila wart, pt states her wart is very sore on her left elbow, no refills needed at this time , pt got flu shot this season, pt states her ears ring at night , Referral,4 mo f/u, pt has no concerns today , no refills needed at this time , okay for student , loperamide added to medication list , refill-test strips, lab, 4 mos f/u , Pt has no concerns today , No refillsneeded at this time , Okay for student , lab spec, labs, stop gemfibrozil, 3 mos f/u , Pt qualifies for CCM program -declined, Pt states she discontinued gabapentin due to her feet burning-states she stopped taking it 2 weeks ago, Pt unsure of refills needed, LAB, Speak to Dr. Singh-george, lOvin assistance, 4 week f/u , Pt states she is still expereincing diarrhea, has had it since . , No refills needed at this time. , Copy forms for PAP, Medications listed below as unknown were not reviewed with patient. Medications managed by prescribing provider, Medicare Secondary, Medications listed below as unknown were not reviewed with patient. Medications managed by prescribing provider, Medicare Secondary, 2 mos f/u, Pt thinks she may have a yeast infection. States smells and its itchy. , Pt unsure of refills, Okay for student , blood draw, clarify med from Dr King , 2 week FU, Pt finished course of shingles pills, Refills needed for gabapentin, freestyle lite test strips , zoster pain, ? shingles, ? shingles, Pt states her left shoulder hurts from the shingles. Started 4 days ago, the pain keeps the pt from concentrating, Pt states her foot is looking funky. Questions if it is from the gabapentin. , Pt states she is feeling a little down , LAB / lab spec, referral to Dr. Regan, LAB, 4 week f/u. pt cx'd appt 08/05 KB, ? on labs-FYI, 3 month f/u., Diarrhea, Pt states that she has had diarrhea for a couple weeks. Pt has been taking Imodium pills but they havent seemed to help., Pt states that its hard for her to eat anything without it going through her., Medications reviewed w/pt,med. list is correct -KMM, reorder lab, LAB SPEC, blood draw, results, antibiotic not working, specimen, diarrhea x 1 week, Referral, blood draw, 6mo f/u, No concerns today SB, Back, Need referral from PCP, labs, cold/difficulty breathing ok KM, ok for student, 1 yr f/u, ok for student, doesn't take lyrica, hasn't taken imatrex in years but uses if has a mirgrane, went to see a neurologist for her feet burning, from [facility], needs to have her last MRI from here sent to [facility], wants to know what is best totake for pain for relief, lab, Lantoprost drops refill/needs appt, referral, [facility], Pre op [facility], Med list reviewed, no longer taking zithromax, prenisone, advair HFA. georgern, New Meds: Dulera twice a day. georgern, No refill needed today, labs, Couing & body aches..?what to do, COMBIVENT RESPIMAT, MRI/ KM 02/25, 6 month f/u, Med list reviewed, no longer taking fish oil, red yeast rice. georgern, Refills neede on singRA Bryan heart.georgern, refill Lyrica RE 01/25, lab, MRI order, Refill neuropathy med, feet burn, both feet burn, pt states that this has been going on for years but is now getting worse, Meds reviewed by pt,no longer taking: red yeast rice, fish oil, advair, Meds reviewed by pt,new meds: dulera 2 puffs in the am, 2 in the pm-tp, Left Leg, Cast Change(she will probably cancel, as she was following up with Jose Alejandro), 07/02 ASK PK-broken leg, left distal tibia fx, FU to [facility], Patient fell on snow covered wood steps, heard a pop and painful left ankle, seen in [facility], Medications reviewed w/pt,med. list is correct.ch, seen in Er Monday for cold,2 wk f/u per jf-pt here today to discuss LABS-questions about triglycerides, Meds reviewed by pt,newmeds: latanoprost 0.005% 1 drop in each eye-td, cxr, PFT after IMMANUEL also Needs chest x-ray after PFT,exercise,SOB,singh, PFT after IMMANUEL also Needs chest x-ray after PFT,exercise,SOB,singh, ZOSTAVAX, lab, med f/u, c/o of having a hard time breathing lately , denies any chest pain , feels tight between shoulder blades /Kn, Meds reviewed by pt,no longer taking: Naprosyn /KN, Coughing at night a lot /KN, All ready had flu shot at [facility] , ? getting shingles shot /Kn, c/o of feet burning all the time , ? 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 , Medications reviewed w/pt,med. list is correct- *JLB, labs, LAB, recheck foot--patient cancel 04/22, Cancelled appt, flu shot, R foot pain. Pt states that she has had right foot pain since October and that the bottom of her feet burn and turn red st night., Medications reviewed w/pt,med. list is correct - nab, scr mammo, COMP REV, Tdap-State, Pneumococcal-Charge, Has had two cortisone shots in right foot in last month and not better /KN, med list reviewed and correct /KN, PROPRANOLOL REFILL-CPE, sick, cough, congestion, and sore throat for 2 daysnow and head hurts when coughs , meds reviewed and corrected /KN, Ok Pa student , SINGULAIR REFILL, med f/u, pt states she has the shingles like feeling in her back again, Medications reviewed w/pt,med. list is correct (ZAKIA), ok for ju GEMFIBROZIL REFILL-f/u apt, LAB, [place], Colonoscopy, Colonoscopy, Screening-- Surg: Colonoscopy clinic, screening, high risk, dexa, mammo, CHEST TIGHTNESS CL, Refill propranolol, gemfibrozil, Imitrex, cxr, Recheck labs in 3 months, CPE, CPE, Pt states that her feet "burn so bad". The burning is constant., Pt has a "bump" on her anus and when she wipes it bleeds. Pt cannot hold her gas., Pt states that she was sick this winter and still wheeze when she walks up the stairs or do anything, Meds reviewed, no longer taking: HCTZand Relafen, Refills Propranolol and Singulair, gemfibrozil, Refill Singulair, f/u meds and tests, 1month f/u congestion and wheezing / pt rescheduled for 12/19/08 per cl mf, cough, sore throat, cough, sore throat, cough, sore throat, mib, Propranolol refill request, Stress MIBI, Foot xray negative, congestion and wheezing. pt states it's been going on for two weeks, dry cough, bringing up yellow/ green. no sore throat. no fever, pt states her right foot [facility]. still sore., wants something for Sob and wheezing, Nabumetone refillrequest//FYI, Genfibrozil Refill Request Fax//FYI, refill-imitrex, Cold symptoms, requesting call/FYI, mammo, Propranolol refill request fax, 08:15 LAB, COMP REV, Still having Hot flashed even when onthe EStradiol, Left knee strain seen Er 10/30/07, refills of Lopid, Propranolol and Relafen, SINUS PAIN/PRESSURE, Imitrex, refills of Relafen and Gemfib, mammo, STAPLE REMOVAL, from back, Dr Dale in [place] put in, refills, propranolol & estradiol refill request, LEFT INFO FROM [employer] AND NEEDS THE APPT TIME , DR DALE, pre-op having surgery the , MRI L SPINE, NEEDS PAIN MEDS, Needs call back from , f/up, F/UP, F/UP, F/UP, NEW DR DALE Insurance Providers [facility] Member Patient Patient Patient Patient Patient Subscriber Subscriber Subscriber Group Insurance Plan Plan Plan Plan ID Relationship Address Phone Name Date of ID Name Date of No Type Insurance Insurance Insurance Coverage to Subscriber Address Phone Name Dates BLUE [place]OSS [address] [place] [id number] [facility] [address] [place] [address] S-BLUE [phone] S-BLUE self [place] [id number] [facility] [place] [facility] [place] [place] [id number] SELF PAY self [place] [id number] OTHER [place] OTHER [facility] [id number] S-CIGNA [phone] S-CIGNA self E[place] [id number] [id number] [facility] [place] [id number] MEDICARE [address] GOFFS MEDICARE self [place] [id number] [facility] [id number] AETNA US [address] US self E[place] [id number] HEALTHCARE [id number] [facility] [place] [id number] S-SECONDAR [address]SECONDAR self E[place] [id number] Y OTHER GATE Y OTHER [facility] [id number] SELF PAY self [place] [id number] [place] [id number] [address] SEL[address] SELF PAY self [place] [id number] AFTER BLUE [place] AFTER [facility] [id number] [facility] SELF PAY [address] SELF PAY self [place] [id number] [place] [facility] [place] [id number] SELF PAY self [place] [id number] NO [place] [id number] INS[address]ANCE TH MEDICAL (GENERAL) HISTORY Type Description Date Medical History migraine headache Medical History DJd Medical History spinal stenosis Medical History Allergic bronchitis w/o mention of statu s asthmaticus or acute exacerbation Medical History s/p meniscectomy with DR Blount on right Medical History copd Medical History periph neuropathy Medical History Dm type 2 Surgical History tonsillectomy Surgical History appendectomy Surgical History HYSTERECTOMY 1979 Surgical History bladder suspension, unspecified Surgical History COLONOSCOPY 08/05 Surgical History BACK 08/01/06 Surgical History Lt shoulder surgery 12/07 Surgical History repaired bicep tendon left december 07 Surgical History CARPAL TUNNEL 2009 Surgical History carpal tunnel left 07/2010 Surgical History colonoscopy 03/10/10 Surgical History back surgery Surgical History Right knee, torn meniscus 12/13 Surgical History RIght knee replacement 07/08/13 Surgical History Left thumb 12/31/2014 Surgical History Colonscopy,Calvin Regan [facility] gical 09/22/2015 Asso: Tubular adenoma recall 5 years Surgical History LR EGD: GERD 09/22/2015 Surgical History Left thumb 06/2016 Surgical History L Rotor cuff tear 2018 Hospitalization History see above
--- NOTE | 2021-06-01 07:30 | DI.US_ITS ---
Exam(s) US THYROID EXAM: US THYROID CLINICAL HISTORY: Please assess stability, previous films at [facility],F/U THYROID NODULE,E04.1. TECHNIQUE: Ultrasound thyroid performed using standard protocol. COMPARISON: US US THYROID from 07/28/2020 FINDINGS: ISTHMUS: 2 mm RIGHT LOBE: Size: 4.4 cc by 1.7 AP by 1.4 transverse cm Echogenicity: Normal. Vascularity: Normal. Nodules: There is an area of decreased echogenicity in the mid aspect of the right lobe of the liver posteriorly measuring 0.8 x 0.5 x 0.6 cm. This may represent a nodule. It is suggested on the prior examination from 07/28/2020 and is unchanged. It would be consistent with a TIRADS level 3 nodule. No follow-up is recommended. LEFT LOBE: Size: 5.3 cc by 3.5 AP by 4.2 transverse cm Echogenicity: Overall heterogeneous echogenicity. Vascularity: Normal. Nodules: Several ill-defined solid nodules are seen in the thyroid gland. These appear better charac terized on the current examination. The largest solid area measures 2.5 x 2.6 x 3.2 cm. It is hyper echoic. There do appear to be echogenic foci internally. This is consistent with a TIRADS level 4 n odule. There is a 2.3 x 1.7 x 1.7 cm isoechoic ill-defined nodule in the midpole which does contain echogenic foci. This is also consistent with a TIRADS level 4 nodule. There is a 2.2 x 1.7 x 2.2 c m isoechoic solid nodule in the midpole with echogenic foci consistent with a TIRADS level 4 nodule. OTHER FINDINGS: There is a 0.5 x 0.5 x 0.5 cm lymph node in the left neck which shows internal calcif ications. IMPRESSION: Multinodular thyroid gland. Please see the above discussion for complete details. Due to the size a nd categories a fernandes of the nodules, FNA should be considered. DATA REPOSITORY:
== END 2021-06-01 01:02 ==
PROVIDERS: PCP Family Medicine; Visit Provider Otolaryngology
DX: E04.2 Nontoxic multinodular goiter (principal)
CPT/HCPCS: 76536

== ENCOUNTER 2021-08-02 00:23 | Outpatient (CLI) | payer MEDICARE, OTHER, SELFPAY ==
--- NOTE | 2021-08-02 06:51 | DI.US_ITS ---
Exam(s) US NEEDLE LOCAL OTHER WO RAD EXAM: US NEEDLE LOCAL OTHER WO RAD CLINICAL HISTORY: Thyroid nodules, TR 4,e04.1, ultrasound guided biopsy. COMPARISON: US US THYROID from 06/01/2021 TECHNIQUE: Ultrasound was provided for Dr. Foote for guidance with performing a thyroid biopsy. FINDINGS: The previously noted solid nodule of the left lobe of the thyroid was identified. Biopsy procedure p erformed by Dr. Foote. Please see procedure note for details. IMPRESSION: Successful Ultrasound-guided biopsy. DATA REPOSITORY:
--- NOTE | 2021-08-02 09:20 | PAPNONF_PTH ---
PATIENT: Kristel Gupta LOC: [facility]#:[id number] AGE/SX: 81/F ROOM: RE08/02/[address]: Delfin Foote MD : [id number] BED: DIS: 08/02/2021 SPEC #: [id number] RECD: 08/02/21 12:51 STATUS: KAREEM REDavid #: [id number] ISAC: 08/02/21 09:[address]: Delfin Foote DEPT: [facility] Cytology RECD BY: Ladan Rosas ENTERED: 08/02/21 12:52 SP TYPE: EVELIN HARRY DR: Corey Singh Tissues: 1 - BODY FLUID CYTO-FINE NEEDLE [facility] Procedures: BODY FLUID CYTO-FINE NEEDLE [facility]IRATE[facility] Comments: [id number]
--- NOTE | 2021-08-02 10:18 | W.PROCNOTE ---
Procedure Note Date of procedure: 08/02/21 Surgeon/Proceduralist/Physician: Delfin Foote Procedure Diagnosis: Left thyroid nodule Procedure Indications: Patient with a left thyroid nodule TR 4, greater then 2 cm in diameter, increased size over time. Options were explained to the patient regarding further management. She elected to undergo the above procedure. Consent was obtained. The below was then performed. Procedure Description: The patient was prepped and draped in appropriate fashion in the supine position with her head slightly extended. Ultrasound was used to localize the nodule on the right, and then the overlying skin anesthetized with 1% lidocaine with 1/100,000 epinephrine. Following this a 25-gauge needle was passed into the thyroid nodule, and used to collect specimen. 2 passes were made for specimen, and 2 additional passes were made in case Afirma was necessary. There was no significant bleeding. The patient tolerated the procedure well. Sterile dressing was applied and the patient was able to ambulate afterwards without difficulty. Pathology was available to verify adequate cellularity.
== END 2021-08-02 00:43 ==
PROVIDERS: PCP Family Medicine; Visit Provider Otolaryngology
DX: E04.1 Nontoxic single thyroid nodule (principal)
CPT/HCPCS: 10005; 76942; 88104

== ENCOUNTER 2022-08-08 01:09 | Outpatient (CLI) | payer MEDICARE, SELFPAY ==
--- NOTE | 2022-08-08 07:45 | DI.US_ITS ---
Exam(s) US THYROID EXAM: US THYROID CLINICAL HISTORY: Assess for change,THYROID NODULE,E04.1. TECHNIQUE: Ultrasound thyroid performed using standard protocol. COMPARISON: US US THYROID from 06/01/2021 FINDINGS: ISTHMUS: 2.8 mm RIGHT LOBE: Size: 3.5 x 1.6 x 1.2 cm Echogenicity: Normal. Vascularity: Normal. Nodules: There are 2 less than 5 mm nodules in the right lobe of the thyroid gland. No nodules requi ring follow-up or FNA are seen in the right lobe. LEFT LOBE: Size: 9.7 cc by 4.5 AP by 3.8 transverse cm Echogenicity: There is an overall heterogeneity in the echogenicity of the left lobe of the thyroid g land. No discrete nodule could be identified sonographically. Vascularity: Normal. Nodules: None. OTHER FINDINGS: None. IMPRESSION: Overall enlarged heterogeneous left lobe of the thyroid gland without discrete nodule seen sonographi lily. DATA REPOSITORY:
== END 2022-08-08 01:29 ==
LOC: DI 01:09
PROVIDERS: PCP Family Medicine; Visit Provider Otolaryngology
DX: E04.1 Nontoxic single thyroid nodule (principal); E04.8 Other specified nontoxic goiter
CPT/HCPCS: 76536

== ENCOUNTER 2023-02-17 10:20 | Outpatient (CLI) | payer MEDICARE, SELFPAY ==
--- NOTE | 2023-02-17 09:30 | DI.RAD_ITS ---
Exam(s) XR WRIST RT COMPLETE EXAM: XR WRIST RT COMPLETE CLINICAL HISTORY: eval R thumb pain, likely OA. TECHNIQUE: 2D digital imaging was performed. COMPARISON: No exams were available for comparison FINDINGS: 3 views No evidence of fracture or carpal dislocation. No significant ulnar variance. Scaphoid and scapholu lazaro distance are normal. There are moderate degenerative changes in the 1st carpometacarpal joint, this being the articulation between the thumb metacarpal and trapezium. Some degenerative change also noted at the thumb metaca rpophalangeal joint. No osseous lesions. IMPRESSION: Thumb level degenerative changes as described above. No fractures. No osseous lesions DATA REPOSITORY: RADIATION DOSE DELIVERED:
== END 2023-02-17 10:21 | disposition home or self-care (01) ==
LOC: DIORS 10:20
PROVIDERS: PCP Family Medicine; Referring Provider Family Medicine; Visit Provider Student in an Organized Health Care Education/Training Program
DX: M18.11 Unilateral primary osteoarthritis of first carpometacarpal joint, right hand (principal)
CPT/HCPCS: 20600; 99203; 73110; J1030

== ENCOUNTER → 2023-04-17 13:40 | Outpatient (BNVA) | payer MEDICARE, SELFPAY | PROVIDERS: PCP Family Medicine; Referring Provider Family Medicine; Visit Provider Student in an Organized Health Care Education/Training Program | DX: M18.11 Unilateral primary osteoarthritis of first carpometacarpal joint, right hand (principal) | CPT/HCPCS: 99213 ==

== ENCOUNTER 2023-05-30 10:49 | Day surgery (SDC) | payer MEDICARE, SELFPAY ==
[2023-05-30 11:30] VITALS: BP 108/75; PULSE 72; RESP 16; TEMP 36.4; O2SAT 96
--- NOTE | 2023-05-30 12:05 | HPE_ITS ---
Documented by User: Beverly Adame 05/30/23 12:22 Assessment and Plan Assessment and plan (1) Arthritis of carpometacarpal (CMC) joint of right thumb: Status: Acute Assessment and plan: Plan: Patient has known history of previously recorded moderate aortic stenosis - had ICD and she reports having cardiology visit earlier this week who recommended yearly follow-up. Educated patient on surgery covering surgical technique, recovery process, benefits and risks including but not limited to risk of infection, blood clot, damage to soft tissue/blood vessels/nerves in detail. After discussion patient gives verbal understanding of risks and elects to proceed with scheduling surgery. Patient had opportunity to have questions answered to their satisfaction. Patient will continue to be scheduled for right CMC arthroplasty with trapezial resection and suture suspension with Dr. Olson. History of Present Illness Narrative: Ms. Gupta is an 83-year-old female who presents for right thumb surgery. For full history please refer to her last office visit note from 04/17/23. She denies any changes in her symptoms and wishes to proceed with surgery. Review of Systems Cardiovascular Cardiovascular: Denies chest pain, Denies dyspnea and Reports dyspnea on exertion (if hurrying) Respiratory Respiratory: Denies dyspnea and Reports dyspnea on exertion (if hurrying) PFSH All Active Problems (Updated 05/30/23 @ 12:03 by Rj Clement) Arthritis of carpometacarpal (CMC) joint of right thumb (Acute) Thyroid nodule (Acute) Status post left rotator cuff repair (Chronic) Surgery done by Dr. Blount Date of surgery: February 05, 2018 Status post total knee replacement using cement (Acute 07/08/13) Surgery done by Venancio Blount M.D. 07-08-2013 Osteoarthritis of right knee (Acute 07/08/13) Medical History (Updated 05/30/23 @ 12:03 by Rj Clement) Left bundle branch block (LBBB) Moderate aortic stenosis Cardiomyopathy LAST ECHO 02/23/23 Hx of congestive heart failure Allergic bronchitis Spinal stenosis Peripheral neuropathy DJD (degenerative joint disease) Hyperlipidemia COPD (chronic obstructive pulmonary disease) Migraine headache Surgical History H/O shoulder surgery patient reports multiple surgeries bilaterally Hx of tubal ligation History of tonsillectomy and adenoidectomy History of total hip replacement carpel tunnel bladder suspension back stated they cleaned out the arthritis in the L2-5 or something like that Replacement of total knee joint (07/08/13) Right Vaginal hysterectomy Arthroplasty of knee (12/19/12) Right knee Appendectomy Family History Mother No problems noted. Father No problems noted. Social History Smoking/Tobacco Use Status: Never Smoking risk assessment performed?: Yes Alcohol Intake: current Alcohol Intake frequency: holidays/special occasions only Drug use: Never Substance use type: does not use Housing: house Do you feel safe at home: Yes Additional Social history: unable to assess privately Meds Allergies and Home Medications Allergies Allergy/AdvReac Type Severity Reaction Status Date / Time venom-honey bee Allergy Severe Swelling/Ed Verified 05/30/23 12:22 talha pregabalin [From Lyrica] AdvReac Mild Swelling/Ed Verified 05/30/23 12:22 talha Home Medications Medication Instructions Recorded Confirmed Type propranolol 40 mg tablet 40 mg PO DAILY 12/14/12 05/30/23 History epinephrine 0.3 mg/0.3 mL 0.3 mg IM PRN PRN 12/17/12 05/30/23 History injection, auto-injector (EpiPen) ibuprofen 600 mg tablet 600 mg PO PRN PRN 12/17/12 05/30/23 History latanoprost 0.005 % eye drops 2.5 ml ophthalmic (eye) HS 12/17/12 05/30/23 History montelukast 10 mg tablet 10 mg PO HS 12/17/12 05/30/23 History omeprazole 40 mg capsule,delayed 40 mg PO DAILY 07/01/13 05/30/23 History release albuterol sulfate 90 mcg/actuation 0 gm inhalation DIRECTED PRN 12/29/14 05/30/23 History aerosol inhaler (Proventil HFA) loperamide-simethicone 2 mg-125 mg 1 ea PO DAILY #30 caps 08/27/15 05/30/23 History tablet (Imodium Multi-Symptom Relief) fluticasone furoate 100 1 inh inhalation HS 12/27/18 05/30/23 History mcg-vilanterol 25 mcg/dose inhalation powder (Breo Ellipta) apixaban 5 mg tablet (Eliquis) 5 mg PO BID 02/17/23 05/29/23 History atorvastatin 10 mg tablet 10 mg PO DAILY 02/17/23 05/30/23 History carvedilol 6.25 mg tablet 6.25 mg PO BID 02/17/23 05/30/23 History gabapentin 600 mg tablet 600 mg PO TID 02/17/23 05/30/23 History isosorbide mononitrate 60 mg 60 mg PO DAILY 02/17/23 05/30/23 History tablet,extended release 24 hr sacubitril 24 mg-valsartan 26 mg 1 tab PO BID 02/17/23 05/30/23 History tablet (Entresto) spironolactone 25 mg tablet 25 mg PO DAILY 02/17/23 05/30/23 History torsemide 20 mg tablet 20 mg PO DAILY 02/17/23 05/30/23 History acetaminophen 500 mg tablet 1,000 mg (2 x 500 mg) PO Q8H PRN 05/30/23 Rx pain #90 tabs hydrocodone 5 mg-acetaminophen 325 1 tab PO Q6H PRN severe pain #6 05/30/23 Rx mg tablet tabs Exam Const General: cooperative, healthy appearing and comfortable Resp Auscultation: clear to auscultation bilaterally, no rales, no rhonchi and no wheezes Cardio Heart Sounds: S1 normal and S2 normal Results Last Vital Signs Temp 97.5 F L 05/30/23 11:30 Pulse 72 05/30/23 11:30 Resp 16 05/30/23 11:30 BP 108/75 05/30/23 11:30 Pulse Ox 96 05/30/23 11:30 Documented by User: Cem Olson MD 05/30/23 12:35 Assessment and Plan Assessment and plan (1) Arthritis of carpometacarpal (CMC) joint of right thumb: Status: Acute Assessment and plan: Plan: Patient has known history of previously recorded moderate aortic stenosis - had ICD and she reports having cardiology visit earlier this week who recommended yearly follow-up. Educated patient on surgery covering surgical technique, recovery process, benefits and risks including but not limited to risk of infection, blood clot, damage to soft tissue/blood vessels/nerves in detail. After discussion patient gives verbal understanding of risks and elects to proceed with scheduling surgery. Patient had opportunity to have questions answered to their satisfaction. Patient will continue to be scheduled for right CMC arthroplasty with trapezial resection and suture suspension with Dr. Olson. I interviewed and examined the patient with Beverly Adame PA-C. I agree with the documentation as above. The assessment and plan were formulated with my direct involvement. Rodríguez is an 83-year-old has ongoing severe arthritis of the right thumb CMC joint. She had a successful CMC replacement, trapezial resection art hroplasty, on the left side. She has failed other nonoperative options and is here today for CMC arthroplasty on the right. I discussed the surgery with her. I discussed the technical details. I reviewed the risk and the benefits. Some the risks discussed include but are not limited to infection, bleeding, stiffness, weakness, subsidence, damage to nerves and vessels, damage to muscle and tendons. Despite these risk, she elects to proceed. Cem Olson MD FAAOS FAAHKS PFSH All Active Problems (Updated 05/30/23 @ 12:03 by Rj Clement) Arthritis of carpometacarpal (CMC) joint of right thumb (Acute) Thyroid nodule (Acute) Status post left rotator cuff repair (Chronic) Surgery done by Dr. Blount Date of surgery: February 05, 2018 Status post total knee replacement using cement (Acute 07/08/13) Surgery done by Venancio Blount M.D. 07-08-2013 Osteoarthritis of right knee (Acute 07/08/13) Medical History (Updated 05/30/23 @ 12:03 by Rj Clement) Left bundle branch block (LBBB) Moderate aortic stenosis Cardiomyopathy LAST ECHO 02/23/23 Hx of congestive heart failure Allergic bronchitis Spinal stenosis Peripheral neuropathy DJD (degenerative joint disease) Hyperlipidemia COPD (chronic obstructive pulmonary disease) Migraine headache Surgical History H/O shoulder surgery patient reports multiple surgeries bilaterally Hx of tubal ligation History of tonsillectomy and adenoidectomy History of total hip replacement carpel tunnel bladder suspension back stated they cleaned out the arthritis in the L2-5 or something like that Replacement of total knee joint (07/08/13) Right Vaginal hysterectomy Arthroplasty of knee (12/19/12) Right knee Appendectomy Family History Mother No problems noted. Father No problems noted. Social History Smoking/Tobacco Use Status: Never Smoking risk assessment performed?: Yes Alcohol Intake: current Alcohol Intake frequency: holidays/special occasions only Drug use: Never Substance use type: does not use Housing: house Do you feel safe at home: Yes Additional Social history: unable to assess privately Meds Allergies and Home Medications Allergies Allergy/AdvReac Type Severity Reaction Status Date / Time venom-honey bee Allergy Severe Swelling/Ed Verified 05/30/23 12:22 talha pregabalin [From Lyrica] AdvReac Mild Swelling/Ed Verified 05/30/23 12:22 talha Home Medications Medication Instructions Recorded Confirmed Type propranolol 40 mg tablet 40 mg PO DAILY 12/14/12 05/30/23 History epinephrine 0.3 mg/0.3 mL 0.3 mg IM PRN PRN 12/17/12 05/30/23 History injection, auto-injector (EpiPen) ibuprofen 600 mg tablet 600 mg PO PRN PRN 12/17/12 05/30/23 History latanoprost 0.005 % eye drops 2.5 ml ophthalmic (eye) HS 12/17/12 05/30/23 History montelukast 10 mg tablet 10 mg PO HS 12/17/12 05/30/23 History omeprazole 40 mg capsule,delayed 40 mg PO DAILY 07/01/13 05/30/23 History release albuterol sulfate 90 mcg/actuation 0 gm inhalation DIRECTED PRN 12/29/14 05/30/23 History aerosol inhaler (Proventil HFA) loperamide-simethicone 2 mg-125 mg 1 ea PO DAILY #30 caps 08/27/15 05/30/23 History tablet (Imodium Multi-Symptom Relief) fluticasone furoate 100 1 inh inhalation HS 12/27/18 05/30/23 History mcg-vilanterol 25 mcg/dose inhalation powder (Breo Ellipta) apixaban 5 mg tablet (Eliquis) 5 mg PO BID 02/17/23 05/29/23 History atorvastatin 10 mg tablet 10 mg PO DAILY 02/17/23 05/30/23 History carvedilol 6.25 mg tablet 6.25 mg PO BID 02/17/23 05/30/23 History gabapentin 600 mg tablet 600 mg PO TID 02/17/23 05/30/23 History isosorbide mononitrate 60 mg 60 mg PO DAILY 02/17/23 05/30/23 History tablet,extended release 24 hr sacubitril 24 mg-valsartan 26 mg 1 tab PO BID 02/17/23 05/30/23 History tablet (Entresto) spironolactone 25 mg tablet 25 mg PO DAILY 02/17/23 05/30/23 History torsemide 20 mg tablet 20 mg PO DAILY 02/17/23 05/30/23 History acetaminophen 500 mg tablet 1,000 mg (2 x 500 mg) PO Q8H PRN 05/30/23 Rx pain #90 tabs hydrocodone 5 mg-acetaminophen 325 1 tab PO Q6H PRN severe pain #6 05/30/23 Rx mg tablet tabs
[2023-05-30] MEDS: Lactated Ringers 1,000 ML 80 ML IV (12:10)
--- NOTE | 2023-05-30 12:27 | W.ANESPRE ---
General Info Date of Service Date Performed: 05/30/23 Height: 5 ft 6 in Weight: 85.275 kg Body Mass Index (BMI): 30.3 Surgical Procedure: Operation Date: 05/30/23 14:10 Proposed Procedure Side Surgeon p CMC Thumb Arthroplasty Right Cem Olson MD Meds Allergies and Home Medications Allergies Allergy/AdvReac Type Severity Reaction Status Date / Time venom-honey bee Allergy Severe Swelling/Ed Verified 05/30/23 12:22 talha pregabalin [From Lyrica] AdvReac Mild Swelling/Ed Verified 05/30/23 12:22 talha Home Medication Medication Instructions Recorded propranolol 40 mg tablet 40 mg PO DAILY 12/14/12 epinephrine 0.3 mg/0.3 mL 0.3 mg IM PRN PRN 12/17/12 injection, auto-injector (EpiPen) ibuprofen 600 mg tablet 600 mg PO PRN PRN 12/17/12 latanoprost 0.005 % eye drops 2.5 ml ophthalmic (eye) HS 12/17/12 montelukast 10 mg tablet 10 mg PO HS 12/17/12 omeprazole 40 mg capsule,delayed 40 mg PO DAILY 07/01/13 release albuterol sulfate 90 mcg/actuation 0 gm inhalation DIRECTED PRN 12/29/14 aerosol inhaler (Proventil HFA) loperamide-simethicone 2 mg-125 mg 1 ea PO DAILY #30 caps 08/27/15 tablet (Imodium Multi-Symptom Relief) fluticasone furoate 100 1 inh inhalation HS 12/27/18 mcg-vilanterol 25 mcg/dose inhalation powder (Breo Ellipta) apixaban 5 mg tablet (Eliquis) 5 mg PO BID 02/17/23 atorvastatin 10 mg tablet 10 mg PO DAILY 02/17/23 carvedilol 6.25 mg tablet 6.25 mg PO BID 02/17/23 gabapentin 600 mg tablet 600 mg PO TID 02/17/23 isosorbide mononitrate 60 mg 60 mg PO DAILY 02/17/23 tablet,extended release 24 hr sacubitril 24 mg-valsartan 26 mg 1 tab PO BID 02/17/23 tablet (Entresto) spironolactone 25 mg tablet 25 mg PO DAILY 02/17/23 torsemide 20 mg tablet 20 mg PO DAILY 02/17/23 Current Visit Medications: Current Medications Generic Name Dose Route Start Last Admin Trade Name Edie PRN Reason Stop Dose Admin Ringer's Solution 1,000 mls @ 80 mls/hr 05/30/23 06:00 05/30/23 12:10 IV 05/30/23 23:59 80 mls/hr INFUSION PABLITO Administration Cefazolin Sodium/Dextrose 2 gm in 50 mls @ 100 mls/hr 05/30/23 06:00 Ancef Duplex IVPB 05/30/23 23:59 PREOP PABLITO IV Miscellaneous Supplies 1 each 05/30/23 06:00 Iv Access IV 05/30/23 23:59 DIRECTED PABLITO Sodium Chloride 0 ml 05/30/23 06:00 Normal Saline Flush 10 Ml Syr IV 05/30/23 23:59 PRN PRN Sodium Chloride 0 ml 05/30/23 06:00 Normal Saline 10 Ml Vial IJ 05/30/23 23:59 DIRECTED PRN Sterile Water 0 ml 05/30/23 06:00 Water,Injection,Sterile 10 Ml Vial IJ 05/30/23 23:59 DIRECTED PRN PFSH Active Problems Active Problems: Problem Status Onset Code Arthritis of carpometacarpal (CMC) joint of right thumb M18.11 Thyroid nodule E04.1 Status post left rotator cuff repair Z98.890 Status post total knee replacement using cement 07/08/13 Z96.659 Osteoarthritis of right knee 07/08/13 M17.9 Medical History Medical History (Updated 05/30/23 @ 12:03 by Rj Clement) Left bundle branch block (LBBB) Moderate aortic stenosis Cardiomyopathy LAST ECHO 02/23/23 Hx of congestive heart failure Allergic bronchitis Spinal stenosis Peripheral neuropathy DJD (degenerative joint disease) Hyperlipidemia COPD (chronic obstructive pulmonary disease) Migraine headache Surgical History Surgical History H/O shoulder surgery patient reports multiple surgeries bilaterally Hx of tubal ligation History of tonsillectomy and adenoidectomy History of total hip replacement carpel tunnel bladder suspension back stated they cleaned out the arthritis in the L2-5 or something like that Replacement of total knee joint (07/08/13) Right Vaginal hysterectomy Arthroplasty of knee (12/19/12) Right knee Appendectomy Tobacco Smoking/Tobacco Use Status: Never Alcohol Alcohol Intake: current Alcohol intake frequency: holidays/special occasions only Substance Use Substance use: Never Substance use type: does not use Vital Signs and Lab Results Vital Signs Most Recent Vital Signs in EMR: Most Recent Vital Signs Temp Pulse Resp BP Pulse Ox 36.4 C L 72 16 108/75 96 05/30/23 11:30 05/30/23 11:30 05/30/23 11:30 05/30/23 11:30 05/30/23 11:30 Lab Results Blood Type / Crossmatch: No Data to Display Complete Blood Count: No Data to Display Complete Metabolic Panel: No Data to Display Liver Function Panel: No Data to Display Coagulation Panel: No Data to Display Cardiac Panel: No Data to Display Arterial Blood Gas: No Data to Display Venous Blood Gas: No Data to Display Pancreas Panel: No Data to Display Thyroid Panel: No Data to Display Infectious Disease: No Data to Display Blood Cultures: No Data to Display Toxicology Panel: No Data to Display Imaging and Studies Imaging and Studies Study information below may be from another EMR and interpreted by another provider. Please see original notes in EMR for more complete details. Echocardiogram Summary: Persistent LVEF of 30%: upgraded single chamber ICD to [employer]IST-D with good effect. EP records scanned into chart and were reviewed. Anesthesia Assessment and Plan Anesthesia History Personal History: No History of Anesthesia Complications Family History: No Family History of Anesthesia Complications Exercise Tolerance Exercise Tolerance: Metabolic Equivalents>4 Pertinent Negatives Pertinent Negatives: No Symptoms of GERD (with daily prilosec) and No History of CVA/TIA Cardiac & Pulmonary Exam Cardiac Exam: Normal S1/S2 Heart Sounds Pulmonary Exam: Clear Bilateral Breath Sounds Implantable Cardiac Device Does patient have a Pacemaker or an ICD?: Yes Device Engine Emission Technician:: [place] Reason for Placement:: Cardiomyopathy Date of Last Device Interrogation:: 05/18/23 Airway Exam Known Difficult Airway: No Mallampati Class: 2 Mouth Opening: Normal (> 3cm) Thyromental Distance: Greater than 3 cm Neck Range of Motion: Full ROM Neck Circumference: Normal Teeth Condition: Generalized Poor Dentition and Removable Dentures/Plates Upper ASA Classification ASA Score: ASA 3 Emergency Case?: No NPO Status NPO Status: NPO Clears >2 hours, Solids >8 hours Anesthesia Plan Resuscitation Status: Full Code Anesthesia Technique: General Anesthesia Airway Planned: Natural Airway Monitors Used: Standard Monitors
[2023-05-30 12:33] VITALS: BMI 30.3
--- NOTE | 2023-05-30 12:34 | PDOC.DSDIS_ITS ---
Date of service: 05/30/23 Time of Service: 12:36 Discharge Plan Disposition Condition: Good Discharge Details Reason For Visit: Right CMC DJD Attending Provider: Cem Olson Primary Care Provider: Corey Singh [place] Meds and New Rx's Prescriptions: New acetaminophen 500 mg tablet 1,000 mg PO Q8H PRN Qty: 90 0RF Rx Instructions: Take two tablets up to every 8 hours as needed for pain hydrocodone-acetaminophen 5-325 mg tablet 1 tab PO Q6H PRN (Reason: severe pain) Qty: 6 0RF Rx Instructions: Take one tablet up to every 6 hours as needed for severe postoperative pain Continued fluticasone furoate-vilanterol [Breo Ellipta] 100-25 mcg/dose blister with device 1 inh IH HS gabapentin 600 mg tablet 600 mg PO TID Eliquis 5 mg tablet 5 mg PO BID isosorbide mononitrate 60 mg tablet extended release 24 hr 60 mg PO DAILY atorvastatin 10 mg tablet 10 mg PO DAILY torsemide 20 mg tablet 20 mg PO DAILY Patient Comments: Pt takes additional dose PRN spironolactone 25 mg tablet 25 mg PO DAILY carvedilol 6.25 mg tablet 6.25 mg PO BID Rx Instructions: must administer with a meal/food Entresto 24-26 mg tablet 1 tab PO BID loperamide-simethicone [Imodium Multi-Symptom Relief] 1 EACH tablet 1 ea PO DAILY Qty: 30 Patient Comments: prn Rx Instructions: take 2 daily initiall, then 1 cap after each unformed stool to a max of 4 tabs daily. propranolol 40 MG tablet 40 mg PO DAILY latanoprost 2.5 ML drops 2.5 ml Ophthalmic HS montelukast 10 MG tablet 10 mg PO HS epinephrine [EpiPen] 0.3 MG/0.3 ML auto-injector 0.3 mg IM PRN PRN Patient Comments: 12/29/14 Pt states she no longer has. PG ibuprofen 600 MG tablet 600 mg PO PRN PRN Patient Comments: 12/29/14 Pt states not taken regularly. PG omeprazole 40 MG capsule,delayed release(DR/EC) 40 mg PO DAILY albuterol sulfate [Proventil HFA] 1 PUFF HFA aerosol inhaler 0 gm Inhalation DIRECTED PRN Patient Comments: 12/29/14 Pt states not used in several months. PG Discharge Instructions Additional Instructions: Thumb CMC Discharge Instructions Activity: You should keep the hand/thumb elevated as much as possible for the first few days. You may use the other fingers as tolerated but avoid trying to do too much too soon. You may perform light activities with the splint in place. Dressing/Cast: Your splint should stay in place at all times. Do NOT get it wet. You may loosen the ANDRAE wrap if you feel it is too tight and then rewrap more loosely. Medications: - You should take Tylenol and Ibuprofen for baseline pain control. - You have Hydrocodone for breakthrough pain. - You may apply ice over the thumb. Follow-up: 10-14 days Referrals: Cem Olson MD [ [facility] STAFF PHYSICIAN] - Equipment/Supplies: Splint Activity:: Elevate Remove Dressings/Wound Care:: Do Not Remove Shower/Bathe:: Cover Activity:: Activity as Tolerated Diet:: As Tolerated DS: Diagnosis Discharge Diagnosis (1) Arthritis of carpometacarpal (CMC) joint of right thumb: Status: Acute
[2023-05-30] MEDS: ceFAZolin 2 GM/50 ML BAG IVPB (12:52)
[2023-05-30] MEDS: Bupivacaine 0.25% Pres-Free 30 ML VIAL (13:26)
[2023-05-30 13:58] VITALS: BP 121/61; PULSE 63; RESP 17; TEMP 36.3; O2SAT 94
--- NOTE | 2023-05-30 14:04 | DI.RAD_ITS ---
Exam(s) XR HAND RT LIMITED EXAM: XR HAND RT LIMITED CLINICAL HISTORY: cmc joint arthritis right thumb TECHNIQUE: 2D and realtime digital imaging was performed. CONTRAST MATERIAL: Refer to procedure report. COMPARISON: CR XR WRIST RT COMPLETE from 02/17/2023 FINDINGS: Fluoroscopy was provided for Dr. Olson in the OR . Please refer to the procedure report for comp lete details. Ka,r=0.01 mGy IMPRESSION: RADIATION DOSE DELIVERED:
--- NOTE | 2023-05-30 14:15 | ROE_ITS ---
Date of service: 05/30/23 Time of Service: 12:30 Operative Note Operative Note DATE OF PROCEDURE: 05/30/23 PRE-OP DIAGNOSIS: Right Thumb CMC Arthritis POST-OP DIAGNOSIS: same PROCEDURE: Right trapezial resection arthroplasty with suture suspensionplasty SURGEON: Cem Olson VENTILATION MECHANIC: Beverly Adame ANESTHESIA TYPE: General LMA/ETT Refer to Anesthesia Record ESTIMATED BLOOD LOSS: 0 PATHOLOGY: none sent TOURNIQUET TIME: 30 COMPLICATIONS: None Patient was transported to: PACU Patient's condition: stable Indications: Kristel is a 83 year old female who has had symptoms of thumb CMC arthritis with pain and decreased mobility. Nonoperative treatment options had been trialed. Given their failure, I offered operative intervention. I reviewed the technical details. I reviewed the risk of the procedure to include bleeding, infection, pain, stiffness, instability, subsidence, damage to neighboring arteries, damage to the superficial radial nerve, and weakness. Despite these risks, the patient elected to proceed. Findings: There is notable arthrosis between the trapezium and the first metacarpal. The trapezium was resected and a suture suspensionplasty performed. Procedure Description: Kristel was greeted in the preoperative holding area. Name and surgical site were confirmed. The history and physical was completed. The consent was reviewed the patient and signed. She was taken back to the operating room. The patient was placed and monitored anesthesia care. The side was then prepped with ChloraPrep and draped in a standard fashion after a nonsterile tourniquet was placed high up onto the arm. Prophylactic antibiotics in the form of cefazolin were administered. A timeout was performed for safe surgery. The surgical site was drawn on the skin overlying the dorsal radial border of the wrist. The planned surgical field was anesthetized with 0.25% bupivacaine with epinephrine. The limb was exsanguinated and the tourniquet was inflated where it stayed for 30 minutes. A 3 cm incision was made longitudinally over the radial wrist from the level of the radial styloid to just past the base of the first metacarpal. The skin was incised only. The deep tissue and s ubcutaneous fat was dissected with a tenotomy scissors trying to protect branches of the superficial radial nerve. Any branches that were identified were retracted out of the way. The first compartment extensor tendons were then identified. The interval between EPL and EPB was identified. The base of the first metacarpal was palpated. A needle was placed into the joint between the first metacarpal and the trapezium. A single x-ray was used to confirm appropriate positioning. The capsule of the trapezium was then incised. The radial border of the bone was identified. Soft tissues around trapezium were dissected bluntly to allow relaxation of vital arterial structures traversing the trapezium. Using a Emmons blade the capsule was elevated off the trapezium in a subperiosteal fashion. Once it appeared to have all the capsular attachments released, the trapezium was then removed using a rongeur. The wound was inspected to make sure all portions of the trapezium were removed. X-ray was used to confirm appropriate removal of all bony fragments. The wound was then thoroughly irrigated. Using a 2-0 FiberWire then performed a suture suspensionplasty. This was done by incorporating capsule and attachments of the APL at the base of the first metacarpal and creating a sling connected to the deep flexor carpi radialis tendon seen traversing deep within the wound towards the second metacarpal. This was done twice to create a crossing network of 2-0 Fiberwire suture. This was then tied overlying the base of the first metacarpal making sure not to over tighten and hourglass the tendons. This provided support to the first metacarpal to prevent any excessive subsidence. The tourniquet was then released. There is no significant bleeding. The capsule of the trapezium was then reapproximated with a 3-0 Vicryl. The skin was closed with 3-0 Vicryl and subcuticular 4-0 Monocryl, reinforced with skin glue. The hand was dressed with 4 x 4's, Kerlex and ANDRAE to create a soft, thumb spica splint. All counts were correct. Patient was transferred back to PACU in a stable condition.
[2023-05-30 14:39] VITALS: BP 97/59; PULSE 60; RESP 16; TEMP 36.4; O2SAT 95
--- NOTE | 2023-05-30 14:39 | W.ANESPOSTOP ---
Postoperative Evaluation Date, Time and Location Date Performed: 05/30/23 Time Performed: 14:39 Patient Location: Day Surgery Unit Vital Signs Most Recent Imported Vital Signs: Most Recent Vital Signs Temp Pulse Resp BP Pulse Ox 36.3 C L 63 17 121/61 94 05/30/23 13:58 05/30/23 13:58 05/30/23 13:58 05/30/23 13:58 05/30/23 13:58 Pain Score Most Recent Pain Score: Most Recent Pain Score Pain Level 0 05/30/23 13:58 Assessment Mental Status: Awake (Alert & Oriented to Patient Baseline) Airway and Respiratory Function: Patent airway with normal (patient baseline) respiratory exam Cardiovascular Function: Hemodynamically Stable Hydration Status: Adequately Hydrated Nausea & Vomiting: No Nausea or Vomiting Pain: Pt. Denies Any Pain Peripheral Nerve Block: Patient did not receive a nerve block
== END 2023-05-30 15:20 | disposition home or self-care (01) ==
PROVIDERS: PCP Family Medicine; Visit Provider Student in an Organized Health Care Education/Training Program
PROC: (CPT 25447; principal; 2023-05-30 14:00)
DX: M18.11 Unilateral primary osteoarthritis of first carpometacarpal joint, right hand (principal); I42.9 Cardiomyopathy, unspecified; J44.9 Chronic obstructive pulmonary disease, unspecified; M48.00 Spinal stenosis, site unspecified
CPT/HCPCS: 25447; 27447; 76000; 73120; J0690; J2371; J2405; J3010

== ENCOUNTER 2023-06-12 15:04 | Outpatient (CLI) | payer MEDICARE, SELFPAY ==
--- NOTE | 2023-06-12 14:00 | DI.RAD_ITS ---
Exam(s) XR HIP RT COMPLETE AP PELVIS EXAM: XR HIP RT COMPLETE AP PELVIS CLINICAL HISTORY: eval painful R CROW. TECHNIQUE: 2D digital imaging was performed. Two views COMPARISON: CR RIGHT HIP COMPLETE from 08/05/2011 FINDINGS: BONES: No acute fracture is present. No bony destructive lesion is seen. JOINTS: No dislocation present. A right hip prosthesis is in place. No abnormal surrounding bony l ucencies. Mild degenerative changes left hip. SOFT TISSUE: Normal. IMPRESSION: No acute abnormality. Unremarkable right hip prosthesis. DATA REPOSITORY: RADIATION DOSE DELIVERED:
== END 2023-06-12 15:05 | disposition home or self-care (01) ==
LOC: DIORS 15:04
PROVIDERS: PCP Family Medicine; Referring Provider Family Medicine; Visit Provider Student in an Organized Health Care Education/Training Program
DX: G89.29 Other chronic pain (principal); M25.551 Pain in right hip; Z96.641 Presence of right artificial hip joint; Z47.89 Encounter for other orthopedic aftercare; M18.11 Unilateral primary osteoarthritis of first carpometacarpal joint, right hand
CPT/HCPCS: 73502

== ENCOUNTER → 2023-06-20 00:53 | Outpatient (CLI) | payer MEDICARE, SELFPAY ==
--- NOTE | 2023-06-20 14:10 | DI.CT_ITS ---
Exam(s) CT LOWER EXTREMITY RT WO EXAM: CT LOWER EXTREMITY RT WO CLINICAL HISTORY: HIP pain,H/O REPLACEMENT, ?loosening,M25.551,Z96.641. TECHNIQUE: Imaging Protocol: Axial computed tomography images with coronal and sagittal reformatted images were created and reviewed. CONTRAST MATERIAL: Intravenous: None COMPARISON: CR XR HIP RT COMPLETE AP PELVIS from 06/12/2023 FINDINGS: OSSEOUS: Components of the right hip prosthesis are in satisfactory position alignment. The acetabular cup is secured by 2 intact screws. There is no abnormal lucency around the acetabular cup and screws. Als o no abnormal lucency around the femoral stem component. There are no fracture lines. No evidence of osteomyelitis. SOFT TISSUES: There is no evidence of adjacent intrapelvic hematoma. No abnormal masses nor collections within the musculature around the hip nor in the subcutaneous tissues. IMPRESSION: Intact appearing right hip prosthesis. No fracture or obvious loosening. No abnormal soft tissue fi ndings. No prominent fluid around the prosthetic device. RADIATION DOSE DELIVERED: Total DLP DATA REPOSITORY: All CT scans at this facility are submitted to the National Radiology Data Registry (NRDR) Dose Index Registry (DIR) with the [employer] ([employer]). RADIATION OPTIMIZATION: All CT scans at this facility use at least one of these dose optimization te chniques: automated exposure control; mA and/or kV adjustment per patient size (includes targeted exa ms where dose is matched to clinical indication); or iterative reconstruction.
== END ==
PROVIDERS: PCP Family Medicine; Visit Provider Student in an Organized Health Care Education/Training Program
DX: G89.29 Other chronic pain (principal); M25.551 Pain in right hip; Z96.641 Presence of right artificial hip joint
CPT/HCPCS: 73700

== ENCOUNTER → 2023-07-10 13:13 | Outpatient (BNVA) | payer MEDICARE, SELFPAY | PROVIDERS: PCP Family Medicine; Referring Provider Family Medicine | DX: Z47.89 Encounter for other orthopedic aftercare (principal); M18.11 Unilateral primary osteoarthritis of first carpometacarpal joint, right hand; Z96.641 Presence of right artificial hip joint; G89.29 Other chronic pain | CPT/HCPCS: 99214 ==

== ENCOUNTER → 2023-07-13 13:35 | Outpatient (BNVA) | payer MEDICARE, SELFPAY | PROVIDERS: PCP Family Medicine; Referring Provider Family Medicine; Visit Provider Student in an Organized Health Care Education/Training Program | DX: M25.551 Pain in right hip (principal); Z96.641 Presence of right artificial hip joint; G89.29 Other chronic pain | CPT/HCPCS: 20611; J1040 ==

== ENCOUNTER → 2023-09-07 13:41 | Outpatient (BNVA) | payer MEDICARE, SELFPAY | PROVIDERS: PCP Family Medicine; Referring Provider Family Medicine; Visit Provider Student in an Organized Health Care Education/Training Program | DX: S76.811A Strain of other specified muscles, fascia and tendons at thigh level, right thigh, initial encounter (principal); X58.XXXA Exposure to other specified factors, initial encounter; G89.29 Other chronic pain; Z96.641 Presence of right artificial hip joint | CPT/HCPCS: 99214 ==

== ENCOUNTER 2023-09-20 09:38 | Day surgery (SDC) | payer MEDICARE, SELFPAY ==
[2023-09-20] VITALS (10 sets, daily range): BP systolic 109–140; BP diastolic 70–120; PULSE 65–95; RESP 12–18; TEMP 36.1–36.5; O2SAT 92–97; BMI 30.7
--- NOTE | 2023-09-20 06:45 | RT.EKG_ITS ---
APPROVED REPORT Exam: Resting ECG Reason for Exam: Ischemic cardiomyopathy, preoperative baseline Patient Location: O HR:93 bpm ECG Measurements Heart Rate 93 AXIS AK 176 P 29 QRSd 152 QRS 107 QT 414 T -24 QTc 516 Conclusion Atrial-sensed ventricular-paced rhythm...ventricular pacing tracks p-waves
[2023-09-20] MEDS: Celecoxib 200 MG CAP 400 MG PO (10:45)
[2023-09-20] MEDS: Acetaminophen 500 MG TAB 1000 MG PO ×2 (10:45→14:53)
[2023-09-20] MEDS: Lactated Ringers 1,000 ML 80 ML IV (10:46)
[2023-09-20] MEDS: ceFAZolin 2 GM/50 ML BAG IVPB (11:42)
--- NOTE | 2023-09-20 11:58 | W.ANESPRE ---
General Info Date of Service Date Performed: 09/20/23 Height: 5 ft 6 in Weight: 86.5 kg Body Mass Index (BMI): 30.7 Surgical Procedure: Operation Date: 09/20/23 11:50 Proposed Procedure Side Surgeon p Hip Synovectomy W/Iliopsoas Release Right Cem Olson MD Actual Procedure Side Surgeon p Hip Synovectomy W/Iliopsoas Release Right Cem Olson MD Pre-Op Diagnosis Post-Op Diagnosis (1) Chronic hip pain after total replacement of right hip joint (2) Strain of right iliopsoas muscle (1) Chronic hip pain after total replacement of right hip joint (2) Strain of right iliopsoas muscle Meds Allergies and Home Medications Allergies Allergy/AdvReac Type Severity Reaction Status Date / Time venom-honey bee Allergy Severe Swelling/Ed Verified 09/20/23 09:58 talha dapagliflozin [From Farxiga] AdvReac Intermediate Diarrhea Verified 09/20/23 09:58 pregabalin [From Lyrica] AdvReac Mild Swelling/Ed Verified 09/20/23 09:58 talha walnuts Allergy Intermediate Other (See Uncoded 09/20/23 09:58 Comment) pollens Allergy Unknown Other (See Uncoded 09/20/23 09:58 Comment) Home Medication Medication Instructions Recorded propranolol 40 mg tablet 40 mg PO DAILY 12/14/12 epinephrine 0.3 mg/0.3 mL 0.3 mg IM PRN PRN 12/17/12 injection, auto-injector (EpiPen) latanoprost 0.005 % eye drops 2.5 ml ophthalmic (eye) HS 12/17/12 montelukast 10 mg tablet 10 mg PO HS 12/17/12 omeprazole 40 mg capsule,delayed 40 mg PO DAILY 07/01/13 release albuterol sulfate 90 mcg/actuation 0 gm inhalation DIRECTED PRN 12/29/14 aerosol inhaler (Proventil HFA) fluticasone furoate 100 1 inh inhalation HS 12/27/18 mcg-vilanterol 25 mcg/dose inhalation powder (Breo Ellipta) apixaban 5 mg tablet (Eliquis) 5 mg PO BID 02/17/23 atorvastatin 10 mg tablet 10 mg PO DAILY 02/17/23 carvedilol 6.25 mg tablet 6.25 mg PO BID 02/17/23 gabapentin 600 mg tablet 600 mg PO TID 02/17/23 isosorbide mononitrate 60 mg 60 mg PO DAILY 02/17/23 tablet,extended release 24 hr sacubitril 24 mg-valsartan 26 mg 1 tab PO BID 02/17/23 tablet (Entresto) spironolactone 25 mg tablet 25 mg PO DAILY 02/17/23 torsemide 20 mg tablet 20 mg PO DAILY 02/17/23 acetaminophen 500 mg tablet 1,000 mg (2 x 500 mg) PO Q8H PRN 05/30/23 pain #90 tabs Current Visit Medications: Current Medications Generic Name Dose Route Start Last Admin Trade Name Freq PRN Reason Stop Dose Admin Acetaminophen 1,000 mg 09/20/23 06:00 09/20/23 10:45 Acetaminophen 500 Mg Tab PO 10/20/23 05:59 1,000 mg PREOP PABLITO Administration Acetaminophen 1,000 mg 09/20/23 07:37 Acetaminophen 500 Mg Tab PO 10/20/23 07:36 TID PRN PRN Analgesia Celecoxib 400 mg 09/20/23 06:00 09/20/23 10:45 Celecoxib 200 Mg Cap PO 10/20/23 05:59 400 mg PREOP PABLITO Administration Docusate Sodium 100 mg 09/20/23 07:37 Docusate Sodium 100 Mg Cap PO 10/20/23 07:36 BID PRN PRN Constipation Ringer's Solution 1,000 mls @ 80 mls/hr 09/20/23 06:00 09/20/23 10:46 IV 09/20/23 23:59 80 mls/hr INFUSION PABLITO Administration Cefazolin Sodium/Dextrose 2 gm in 50 mls @ 100 mls/hr 09/20/23 06:00 Ancef Duplex IVPB 09/20/23 23:59 PREOP PABLITO Tranexamic Acid/Sodium Chloride 100 mls @ 600 mls/hr 09/20/23 06:00 IVPB 10/20/23 05:59 PREOP PABLITO IV Miscellaneous Supplies 1 each 09/20/23 06:00 Iv Access IV 09/20/23 23:59 DIRECTED PABLITO Ondansetron HCl 4 mg 09/20/23 07:37 Ondansetron 4 Mg/2 Ml Vial IVP 10/20/23 07:36 Q6H PRN PRN Nausea Polyethylene Glycol 17 gm 09/20/23 07:37 Polyethylene Glycol 3350 17 Gm Packet PO 10/20/23 07:36 BID PRN PRN Constipation Sodium Chloride 0 ml 09/20/23 06:00 Normal Saline Flush 10 Ml Syr IV 09/20/23 23:59 PRN PRN Sodium Chloride 0 ml 09/20/23 06:00 Normal Saline 10 Ml Vial IJ 09/20/23 23:59 DIRECTED PRN Sterile Water 0 ml 09/20/23 06:00 Water,Injection,Sterile 10 Ml Vial IJ 09/20/23 23:59 DIRECTED PRN Tramadol HCl 50 mg 09/20/23 11:44 Tramadol 50 Mg Tab PO 10/20/23 11:43 Q4H PRN PRN PFSH Active Problems Active Problems: Problem Status Onset Code Strain of right iliopsoas muscle S76.811A 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 states not anymore Hypercholesteremia Numbness in right leg Right leg and foot DDD (degenerative disc disease), lumbar Lumbar spondylosis Low back pain Mitral regurgitation mild-moderate Left bundle branch block (LBBB) Moderate aortic stenosis MILD per most recent ECHO 07/11/22 Cardiomyopathy LAST ECHO 02/23/23 Hx of congestive heart failure Allergic bronchitis Spinal stenosis Peripheral neuropathy DJD (degenerative joint disease) Hyperlipidemia COPD (chronic obstructive pulmonary disease) Migraine headache Surgical History Surgical History H/O hand surgery History of bilateral cataract extraction History of lumbar laminectomy H/O shoulder surgery patient reports multiple surgeries bilaterally Hx of tubal ligation History of tonsillectomy and adenoidectomy History of total hip replacement carpel tunnel bladder suspension back stated they cleaned out the arthritis in the L2-5 or something like that Replacement of total knee joint (07/08/13) Right Vaginal hysterectomy Arthroplasty of knee (12/19/12) Right knee Appendectomy Tobacco Smoking/Tobacco Use Status: Never Alcohol Alcohol Intake: current Alcohol intake frequency: holidays/special occasions only Substance Use Substance use: Never Substance use type: does not use Vital Signs and Lab Results Vital Signs Most Recent Vital Signs in EMR: Most Recent Vital Signs Temp Pulse Resp BP Pulse Ox 36.1 C L 95 H 16 133/84 96 09/20/23 09:59 09/20/23 09:59 09/20/23 09:59 09/20/23 09:59 09/20/23 09:59 Lab Results Blood Type / Crossmatch: No Data to Display Complete Blood Count: No Data to Display Complete Metabolic Panel: No Data to Display Liver Function Panel: No Data to Display Coagulation Panel: No Data to Display Cardiac Panel: No Data to Display Arterial Blood Gas: No Data to Display Venous Blood Gas: No Data to Display Pancreas Panel: No Data to Display Thyroid Panel: No Data to Display Infectious Disease: No Data to Display Blood Cultures: No Data to Display Toxicology Panel: No Data to Display Imaging and Studies Imaging and Studies Study information below may be from another EMR and interpreted by another provider. Please see original notes in EMR for more complete details. EKG Summary: Taken today and reviewed, appears a-paced Echocardiogram Summary: Persistent LVEF of 30%: upgraded single chamber ICD to CERTIFIED RECREATIONAL THERAPIST-D with good effect. EP records scanned into chart and were reviewed. Anesthesia Assessment and Plan Anesthesia History Personal History: No History of Anesthesia Complications Family History: No Family History of Anesthesia Complications Exercise Tolerance Exercise Tolerance: Metabolic Equivalents>4 Pertinent Negatives Pertinent Negatives: No Symptoms of GERD, No Major Cardiovascular Symptoms or Complaints, No Major Pulmonary Symptoms or Complaints and No History of CVA/TIA Cardiac & Pulmonary Exam Cardiac Exam: Normal S1/S2 Heart Sounds Pulmonary Exam: Clear Bilateral Breath Sounds Implantable Cardiac Device Does patient have a Pacemaker or an ICD?: Yes Device Assistant Offset Press Operator:: [employer] Reason for Placement:: Afib Date of Last Device Interrogation:: December 2021 pt states Airway Exam Known Difficult Airway: No Mallampati Class: 2 Mouth Opening: Normal (> 3cm) Thyromental Distance: Greater than 3 cm Neck Range of Motion: Full ROM Neck Circumference: Normal Teeth Condition: Generalized Poor Dentition and Removable Dentures/Plates Upper ASA Classification ASA Score: ASA 3 Emergency Case?: No NPO Status NPO Status: NPO Clears >2 hours, Solids >8 hours Anesthesia Plan Resuscitation Status: Full Code Anesthesia Technique: Spinal Anesthesia (GETA as backup) Airway Planned: Natural Airway Monitors Used: Standard Monitors
--- NOTE | 2023-09-20 13:00 | W.PM.DSUDISC ---
Date of service: 09/20/23 Time of Service: 13:00 Discharge Plan Disposition Patient Disposition: Home Condition: Good Discharge Details Reason For Visit: Hip debridement iliopsoas release Attending Provider: Cem Olson Primary Care Provider: Corey Singh [address] Meds and New Rx's Prescriptions: New celecoxib 200 mg capsule 200 mg PO BID Qty: 60 0RF acetaminophen 500 mg tablet 1,000 mg PO TID Qty: 90 3RF tramadol 50 mg tablet 50 mg PO BID PRNQty: 4 0RF Continued fluticasone furoate-vilanterol [Breo Ellipta] 100-25 mcg/dose blister with device 1 inh IH HS gabapentin 600 mg tablet 600 mg PO TID Eliquis 5 mg tablet 5 mg PO BID isosorbide mononitrate 60 mg tablet extended release 24 hr 60 mg PO DAILY atorvastatin 10 mg tablet 10 mg PO DAILY torsemide 20 mg tablet 20 mg PO DAILY Patient Comments: Pt takes additional dose PRN spironolactone 25 mg tablet 25 mg PO DAILY carvedilol 6.25 mg tablet 6.25 mg PO BID Rx Instructions: must administer with a meal/food Entresto 24-26 mg tablet 1 tab PO BID propranolol 40 MG tablet 40 mg PO DAILY latanoprost 2.5 ML drops 2.5 ml Ophthalmic HS montelukast 10 MG tablet 10 mg PO HS epinephrine [EpiPen] 0.3 MG/0.3 ML auto-injector 0.3 mg IM PRN PRN Patient Comments: 12/29/14 Pt states she no longer has. PG omeprazole 40 MG capsule,delayed release(DR/EC) 40 mg PO DAILY albuterol sulfate [Proventil HFA] 1 PUFF HFA aerosol inhaler 0 gm Inhalation DIRECTED PRN Patient Comments: 12/29/14 Pt states not used in several months. PG Discontinued acetaminophen 500 mg tablet 1,000 mg PO Q8H PRN Qty: 90 0RF Rx Instructions: Take two tablets up to every 8 hours as needed for pain Discharge Instructions Additional Instructions: Hip Debridement Discharge Instructions Activity: The most important activity is to walk. You should try to take short walks a few times a day. You have no restrictions on movement or positioning, but do not try to force what you do. You will find some stiffness and weakness with hip flexion (lifting your knee). Do not try to strengthen this too early, continue to practice walking and stairs and this will come. - Outpatient physical therapy can be helpful to help return you to a normal gait and improve your flexibility and strength. This can start around 2 weeks. For some patients, it?s not necessary. Usually this is determined at the time of discharge or at the first post-operative visit. - You should wear the SUZETTE hose on both legs for 2 weeks. Dressing: Keep the surgical dressing in place for at least one week. After the first week it may be removed and replace with light gauze and tape or nothing. It may get wet after 3 days but avoid soaking the dressing. If it gets wet, just lightly pat dry. It is important to always keep some gauze between skin folds, especially when you are sitting. Spend some time with the wound exposed when you are lying flat as the incision does wrinkle onto itself. Medications: - You should take Tylenol and an anti-inflammatory Celebrex as your primary pain control medications. If the Celebrex is too expensive or not covered, please call the office for another alternative (Advil/Ibuprofen or Naproxen/Aleve). - You have been prescribed a stronger pain medication Tramadol for breakthrough pain, take as needed as prescribed. - You will continue your omeprazole to help reduce stomach acid and reflux. - You will be continuing your apixabanfor DVT prevention unless instructed otherwise. - If you have constipation you should take Colace or Miralax (both [id number]). It takes most people 3-4 days to have a bowel movement. Follow-up: 2 weeks If you have any acute concerns or questions, please do not hesitate to contact the office at [phone]. You may contact Dr. Olson with any questions after hours through the hospital at [phone] or on his cell phone at [phone]. Referrals: Cem Olson MD [ [facility] STAFF PHYSICIAN] - Equipment/Supplies: Walker Activity:: Activity as Tolerated Shower/Bathe:: 72 hours Diet:: As Tolerated Discharge Orders Discharge Orders: Discharge Order (Routine); Ordered 09/20/23 Ordered By: Jon Huang DS: Diagnosis Discharge Diagnosis (1) Strain of right iliopsoas muscle: Status: Acute
[2023-09-20] MEDS: fentaNYL 100 MCG/2 ML VIAL IVP ×2 (13:09→13:21)
--- NOTE | 2023-09-20 13:25 | W.PM.OP ---
Date of service: 09/20/23 Time of Service: 11:20 Operative Note Operative Note DATE OF PROCEDURE: 09/20/23 PRE-OP DIAGNOSIS: Painful right hip replacement, iliopsoas tendinitis POST-OP DIAGNOSIS: same PROCEDURE: Right hip debridement, synovectomy, and iliopsoas tendon release SURGEON: Cem Olson REPRODUCTION PRODUCTION MANAGER: Jon Huang ANESTHESIA TYPE: Spinal Refer to Anesthesia Record ESTIMATED BLOOD LOSS: 50 PATHOLOGY: none sent TOURNIQUET TIME: 0 COMPLICATIONS: None Patient was transported to: PACU Patient's condition: stable Indications: I have seen Kristel in clinic for a painful right hip replacement performed elsewhere. She had continued groin pain as well as difficulty with flexion of the right hip. Given the persistent of the symptoms I performed a injection of the iliopsoas bursa which complete relieves her symptoms. Therefore, I offered hip debridement with iliopsoas tenotomy. I explained the risks of the procedure to include, but not limited to, bleeding, infection, pain, stiffness, fracture, damage to nerves and vessels, damage to muscles and tendons, loosening, instability, leg length inequality, need for repeat procedure, blood clot and cardiopulmonary demise. Despite these risks, Kristel elected to proceed. Findings: There is dense synovitis seen throughout the hip. This was resected. The iliopsoas tendon was draped tightly over the anterior rim of the acetabular component and associated with significant scarring. The hip was debrided of the dense synovium and the iliopsoas tendon was released off of the lesser trochanter. Procedure Description: Kristel was greeted in the preoperative holding area where the correct side was identified and marked. The consent was reviewed with the patient and signed. The history and physical was updated. All questions were answered. She was taken back to the operating room. A spinal anesthestic was then administered. The feet were wrapped with cast padding and Coban and then placed into the boot liners and then into the boots. Care was taken to protect the skin and make sure the heels were fully down and the boots were stable. The patient was then positioned onto the HANA table. Both legs were held in a neutral position. SCDs were applied. The patient was then slid down onto a peroneal post. Prophylactic antibiotics in the form of Cefazolin were administered. 1g of Tranxemic Acid was given intravenously within 30 minutes of incision. The right leg was then prepped with Chloraprep and draped in a standard fashion. A second prep with Chloraprep was performed prior to placement of a shower-curtain type drape with Iodine impregnated skin protection. A timeout to confirm correct identity, side and site, procedure, allergies, anesthesia, and medical concerns was performed. The previous incision site was utilized. The skin and soft tissue was dissected sharply, through Wilton?s fascia, and to the fascia of the TFL. With the fascia and superior border of the IT band identified, the fascia was incised with a new knife just above any perforators from the IT band. There is notable density of the tissue overlying the previous surgical site down to the TFL muscle. The TFL muscle belly was bluntly dissected away from the fascia and moved laterally. The fat between TFL and rectus was identified to ensure the dissection was not within the TFL. Blunt dissection created space between abductors and the capsule and retractor was placed over the lateral hip capsule. The fibers of the rectus femoris tendon were identified and these were freed from the anterior capsule. A second cobra retractor was placed around the medial femoral neck. The TFL was further retracted laterally to show the deep fascia. A T-capsulotomy was then performed starting at the superior lateral acetabulum and moving distally to the intertrochanteric ridge. These capsular flaps were tagged with a No. 1 Ethibond and elevated from within. The capsular flaps were released to the shoulder of the lateral neck and to the lesser trochanter to give excellent visualization inside the hip joint. There is dense synovitis seen. This was large pedunculated areas of synovium along with thickened areas deep to the capsule. These were resected from the anterior and taken around both laterally and medially. The tissues in the anteromedial aspect of the hip joint were quite tight and inflamed. The iliopsoas tendon was noted to be draped over the acetabulum. An aggressive debridement of any hypertrophic synovium was performed. The hip was dislocated briefly for better visualization and removal of excess synovium. I was able to fully see the perimeter of the acetabular component and the polyethylene. There is no apparent loosening from the ceramic head of the trunnion. The acetabular component appeared to be intact. The hip was reduced and a retractor was placed over the anterior acetabulum for better visualization. I then slowly released the iliopsoas tendon from the lesser trochanter. The lesser trochanter was relatively quite posterior potential indicating some increased anteversion of the femoral component. The iliopsoas was confirmed to be released fully by direct palpation of the lesser trochanter. The surgical site was then thoroughly irrigated. The hip component was checked to make sure it was well-seated into the cup. The deep tissues were thoroughly irrigated with Surgiphor, betadine solution. This was allowed to sit in the wound for 3 minutes before being thoroughly irrigated out with normal saline. The capsule was then reapproximated with the previously placed Ethibond sutures and a #1 Vicryl. The TFL fascia was finally closed with a No. 2 Stratafix, barbed suture. Deep tissues were then reapproximated with 0 Vicryl and a running 2-0 Vicryl. The skin was closed with a running 4-0 Monocryl in a subcuticular fashion. This was reinforced with skin glue. A Mepilex silver dressing was applied. At the end of the case, all counts were correct. Kristel was transferred to the hospital bed without difficulty and suffering no apparent complication. She has a good prognosis. Physical therapy will start today and without restrictions, weight-bearing as tolerated. She will return to Eliquis 5 mg twice daily for DVT prophylaxis.
--- NOTE | 2023-09-20 15:14 | PT.INIE ---
PT Notes Visit Reasons: Hip debridement iliopsoas release Physical Therapy Day Surgery Initial Evaluation Date: 09/20/2023 Referring Doctor: BRIANA Yoon PT Orders: PT CONSULT: S/P Ortho Surgery Precautions: WBAT on right LE with AD. Patient Profile/Admitting Diagnosis: Rodríguez is an 83-year-old female with diagnosis of chronic hip pain after right total hip replacement along with iliopsoas tendinitis. She is status post R hip debridement, synovectomy, and iliopsoas tendon release on postoperative day 0 PFSH All Active Problems (Updated 09/10/23 @ 09:12 by Cem Olson MD) Strain of right iliopsoas muscle (Acute) Spondylosis of lumbar region without myelopathy or radiculopathy (Acute) Chronic hip pain after total replacement of right hip joint (Acute) POCUS 07/13/23 Arthritis of carpometacarpal (CMC) joint of right thumb (Acute) Thyroid nodule (Acute) Status post left rotator cuff repair (Chronic) Surgery done by Dr. Blount Date of surgery: February 05, 2018 Status post total knee replacement using cement (Acute 07/08/13) Surgery done by Venancio Blount M.D. 07-08-2013 Osteoarthritis of right knee (Acute 07/08/13) Medical History Presence of combination internal cardiac defibrillator (ICD) and pacemaker Pacemaker Irregular heartbeat A-fib Asthma Diabetes Hypercholesteremia Numbness in right leg Right leg and foot DDD (degenerative disc disease), lumbar Lumbar spondylosis Low back pain Mitral regurgitation mild-moderateLeft bundle branch block (LBBB) Moderate aortic stenosis MILD per most recent ECHO 07/11/22 Cardiomyopathy LAST ECHO 02/23/23 Hx of congestive heart failure Allergic bronchitis Spinal stenosis Peripheral neuropathy DJD (degenerative joint disease) Hyperlipidemia COPD (chronic obstructive pulmonary disease) Migraine headache Surgical History H/O hand surgery History of bilateral cataract extraction History of lumbar laminectomy H/O shoulder surgery patient reports multiple surgeries bilaterally Hx of tubal ligation History of tonsillectomy and adenoidectomy History of total hip replacement carpel tunnel bladder suspension back stated they cleaned out the arthritis in the L2-5 or something like that Replacement of total knee joint (07/08/13) Right Vaginal hysterectomy Arthroplasty of knee (12/19/12) Right knee Appendectomy Social History/Home Situation: Lives with in a private home. Ambulatory with no AD although has had increasing difficulty with ambulation due to painful R hip. Independent with all aspects of ADLs prior to surgery. No longer drives. Equipment Owned/DME: [facility] Subjective: Stated that she has been walking like a duck with her R foot since her R hip surgery. She has not been able to bring her R foot up since last year hip operation. Daughter and patient are helpful that she could move and walk better with this surgery. Denied headache, chest pain and lightheadedness throughout. Did express pain when she tried sitting up from lying down. Objective: General Observation: Mepilex Ag over surgical incision. TEDS to be legs. Manny and nurse daughter Crys present during evaluation. Mental Status: A and O x 4 Pain: As above ROM: Right Lower Extremity: Only able to slide heel up to less than 10 degrees of flexion at the hip and knee due to discomfort but able to sit at edge of bed and bedside recliner with no discomfort at the R hip. Unable to bring R hip past 90 while seated on chair. R dorsiflexion to neutral only Left Lower Extremity: Hip flexion WFL. Hip abduction WFL. Knee flexion WFL. Ankle dorsiflexion WFL. Ankle plantarflexion WFL. Strength: Right Lower Extremity: Hip flexors 3-/5. Hip abductors 4-/5. Knee flexors 5/5. Knee extensors 4-/5. Ankle dorsiflexors 2-/5. Ankle plantarflexors 4-/5. Left Lower Extremity:Hip flexors 5/5. Hip abductors 5/5. Knee flexors 5/5. Knee extensors 5/5. Ankle dorsiflexors 5/5. Ankle plantarflexors 5/5. Sensation: Intact as to pain and light pressure in B LE Bed Mobility/Transfers: Minimal cueing provided for use of B hands as needed for support, movement sequence, AD management, and posture to reduce fall risk and minimize pain report Supine to sit contact guard assist Sit to stand stand by assist Stand to sit stand by assist Bed to chair stand by assist Gait: Facilitated safe and correct performance of level surface ambulation of 40 feet + 50 feet +20 feet using front-wheeled walker with contact-guard assist. Decreased DF on R ankle as well as excessive toeing out on R evident which patient and patient's daughter indicated have been like that since patient's R hip surgery in 2022. No loss of balance. No shortness of breath. Balance: Static Sitting: Normal Dynamic Sitting: Normal Static Standing: Fair Dynamic Standing: Fair Special Tests: Mobility Limitations Standardized Measure [facility] 6 clicks Basic Mobility Inpatient Short Form: Raw Score: 21 CMS Score: 28% deficit Informed Consent/Education: Patient instructed in purpose of PT consult. Packet containing HEP has been given to patient. Education and training on initial set of exercises that can be done at home have been completed with patient. Trained patient with correct performance of exercises below to maximize motor control, joint flexibility, soft tissue extensibility of the R hip musculature to facilitate return to independent functional mobility performance. Access Code: [email or web address] URL: [email or web address] Date: Prepared by: Cece Cole Exercises - Gluteal Sets - 1 x daily - 7 x weekly - 1 sets - 10 reps - 5 hold - Supine Heel Slide - 1 x daily - 7 x weekly - 1 sets - 10 reps - 5 hold - Supine Ankle Pumps - 1 x daily - 7 x weekly - 1 sets - 10 reps - 5 hold - Seated March - 1 x daily - 7 x weekly - 1 sets - 10 reps - 5 hold - Seated Long Arc Quad - 1 x daily - 7 x weekly - 1 sets - 10 reps - 5 hold Assessment: Patient requires use of a front wheeled walker for mobility ADL performance to maximize independence and reduce fall risk. Weak R hip internal rotator, weak dorsfilexor and foot supinator on the R resulting to external tibial torsion/R out toeing and decreased step height on R. Patient presents with clinical signs and symptoms consistent with current/admitting diagnoses that have resulted to mobility limitations, gait instability, generalized weakness, and impairment of motor control as demonstrated by the following impairment level findings: 1. Decreased strength to R hip IR, R foot dorsiflexor and R foot invertor 2. Impaired standing balance Impairments are contributing to the following functional limitations: 1. Inability to safely ambulate without assistive device 2. Increase completion time for mobility ADL performance 3. Asymmetric step height and width Patient is assessed as a 86086 moderate complexity based on the following: History: 83-year-old female with impairment level findings, functional limitations, and past medical history as indicated above Examination: Demonstrable impairment in strength, balance, and mobility level with underlying impairments and functional limitations as documented above Presentation: Evolving Decision Makin moderate complexity Goals: N/A. PT evaluation and 1-2 treatment sessions only for functional mobility training using recommended AD and for HEP instruction. Plan of Care/Treatment Plan: N/A. PT evaluation and 1-2 treatment session only for functional mobility training using recommended AD and for HEP instruction. DISCHARGE RECOMMENDATIONS: Home when medically cleared by orthopedic surgeon. Recommend outpatient PT services in order to optimize functional mobility outcomes and facilitate return to independent community ambulation without an assistive device. TREATMENT CODE/TIME: 9716 2 x 25 minutes for 1 unit, 81951 x 17 minutes for 1 unit (15:14-15:52). Thank you for the opportunity to participate in the care of this patient. Please sign an return this page within 30 days if you agree with the above POC. Thank you! Physician Signature Date [facility] Thank you for the opportunity to participate in the care of this patient. Cece Cole PT, DPT, CLT [facility] [place], [place]
--- NOTE | 2023-09-20 16:11 | W.ANESPOSTOP ---
Postoperative Evaluation Date, Time and Location Date Performed: 09/20/23 Time Performed: 15:45 Patient Location: Day Surgery Unit Vital Signs Most Recent Imported Vital Signs: Most Recent Vital Signs Temp Pulse Resp BP Pulse Ox 36.4 C L 87 18 119/70 95 09/20/23 14:22 09/20/23 14:22 09/20/23 14:22 09/20/23 14:22 09/20/23 14:22 Pain Score Most Recent Pain Score: Most Recent Pain Score Pain Level 3 09/20/23 14:22 Assessment Mental Status: Awake (Alert & Oriented to Patient Baseline) Airway and Respiratory Function: Patent airway with normal (patient baseline) respiratory exam Cardiovascular Function: Hemodynamically Stable Hydration Status: Adequately Hydrated Nausea & Vomiting: No Nausea or Vomiting Pain: Pain is tolerable per patient Peripheral Nerve Block: Patient did not receive a nerve block
== END 2023-09-20 16:13 | disposition home or self-care (01) ==
PROVIDERS: PCP Family Medicine; Visit Provider Student in an Organized Health Care Education/Training Program
PROC: (CPT 27130; principal; 2023-09-20 11:30)
DX: T84.84XA Pain due to internal orthopedic prosthetic devices, implants and grafts, initial encounter (principal); M25.551 Pain in right hip; Z96.641 Presence of right artificial hip joint; S76.011A Strain of muscle, fascia and tendon of right hip, initial encounter; X58.XXXA Exposure to other specified factors, initial encounter; Z95.818 Presence of other cardiac implants and grafts; I48.91 Unspecified atrial fibrillation; E11.9 Type 2 diabetes mellitus without complications; J45.909 Unspecified asthma, uncomplicated; I42.9 Cardiomyopathy, unspecified; I44.7 Left bundle-branch block, unspecified; M65.851 Other synovitis and tenosynovitis, right thigh
CPT/HCPCS: 27005; 27054; 97162; 97530; 93005; 93010; J0690; J1100; J2001; J2371; J2401; J2405; J2704; J3010

== ENCOUNTER → 2023-10-05 10:35 | Outpatient (BNVA) | payer MEDICARE, SELFPAY | PROVIDERS: PCP Family Medicine; Referring Provider Family Medicine; Visit Provider Student in an Organized Health Care Education/Training Program | DX: S76.811D Strain of other specified muscles, fascia and tendons at thigh level, right thigh, subsequent encounter (principal); X58.XXXD Exposure to other specified factors, subsequent encounter; G89.29 Other chronic pain; Z96.641 Presence of right artificial hip joint ==

== ENCOUNTER 2023-11-01 14:51 | Outpatient (CLI) | payer MEDICARE, SELFPAY ==
--- NOTE | 2023-11-01 06:00 | DI.RAD_ITS ---
Exam(s) XR PAIN CLINIC LUMBAR SP 2V EXAM: XR PAIN CLINIC LUMBAR SP 2V CLINICAL HISTORY: Dx: Lumbar Spondylosis. TECHNIQUE: Fluoroscopy was provided for the referring physician for guidance with performing pain cl inic injection procedure. COMPARISON: No exams were available for comparison FINDINGS: Please see procedure note for details. Fluoro time: 76 seconds RADIATION DOSE DELIVERED: codey Cardenas=29.25 mGy
[2023-11-01 14:58] VITALS: BP 110/71; PULSE 67; RESP 20; TEMP 36.7; O2SAT 96
--- NOTE | 2023-11-01 15:44 | PDOC.PAIN ---
Date of service: 11/01/23 Time of Service: 15:44 Pain Managment Procedure Note Procedure Note Procedure Note: PROCEDURE NOTE Bilateral Lumbar Medial Branch Blocks Date of Service: November 01, 2023 Patient: Kristel Gupta Provider: Modesta Kirkpatrick DO, MPH Kristel Valorie Gupta has been referred to the [facility] for lumbar medial branch blocks. Pre-operative diagnosis: Lumbar Spondylosis without Myelopathy Post-operative diagnosis: Same Pre-procedure pain: VAS= 10/10 COMMENTS: I previously evaluated her in the office. Her symptoms are unchanged. Abimael was interviewed and the medical records were reviewed. There were no medical, pharmacologic, radiographic or other structural contraindications to attempting fluoroscopically guided local anesthetic lumbar medial branch blocks. Risks and potential side effects were discussed. I also discussed the potential benefit(s) of the procedure with [place], and voiced concerns were addressed. After Kristel was completely informed about the procedure, the printed consent form was signed. A standard time-out procedure was performed. Kristel was placed in the prone position on the fluoroscopy table. Automated blood pressure cuff and pulse oximeter were applied. The skin entry points for approaching the anatomic target points of the segmental medial branches of bilateral L3,L4,L5 were identified with fluoroscopy and marked. The skin at the target site area was thoroughly prepared with Chlorhexadine. The skin was then draped. Next, a 25 gauge 3.5 spinal needle was placed under fluoroscopic guidance down on to the target point (the articular pillar) for each respective segmental medial branch. Position was confirmed in A/P and lateral views. Aspiration revealed no blood or clear fluid. Next, 0.25ml of omnipaque 240 was injected at each level. No contrast following a vascular or neural pattern was visualized under continuous fluoroscopy. Next, 0.25 ml of preservative-free 0.5% bupivicaine was injected at each level. There was no unusual discomfort expressed by Kristel. The needles were withdrawn without difficulty. (49 mls of Omnipaque was wasted) Kristel was observed and was without hemodynamic, neurologic, or allergic reactions.? Fluoroscopic images were digitally archived. Provacative testing using the Modified Archer's facet loading test- Left side Right Side Directly before the block VAS (0-10) = 10/10 VAS (0-10) = 10/10 Five minutes after the block VAS (0-10) = 0/10 VAS (0-10) = 0/10 Percentage relief obtained with this diagnostic block 100% 100% Any improved physical functioning directly after the blocks? Improved range of motion of the lumbar spine Follow up plans and appointments were discussed with Kristel. Kristel was instructed to keep careful note of how the usual pain was modified by these injections. Specifically, to keep a pain diary for the next 4 hours using a numeric pain scale of 0-10 and report these results. Post procedure instruction was given as documented in the nursing documentation and having met discharge criteria, the patient was [facility] from the [facility]. Based on the medial branches blocked today, if they patient has adequate relief and we are able to proceed to radiofrequency ablation, the treatment should result in the denervation of the bilateral L4-L5 and L5-S1 facet joints. We would expect to denervate a total of 4 facets during the radiofrequency ablation. COMMENTS: No apparent complications. Post-procedure pain: VAS= 0/10 Kristel will call back with 0-4 hour post-procedure pain scores. I personally performed the entire procedure. MODESTA KIRKPATRICK DO, MPH ABPM&R-subspecialty board certification in Pain Medicine [facility] [facility]
[2023-11-01 15:48] VITALS: BP 118/88; PULSE 89; RESP 21; O2SAT 93
[2023-11-01] MEDS: Bupivacaine 0.5% Pres-Free 10 ML VIAL IJ (15:50)
[2023-11-01] MEDS: Omnipaque 240 MG/ML 50 ML BTL IJ (15:50)
[2023-11-01] MEDS: Nerve Block Tray 1 EACH MC (15:58)
== END 2023-11-01 14:52 | disposition home or self-care (01) ==
LOC: PC 14:51
PROVIDERS: PCP Family Medicine; Visit Provider Preventive Medicine Occupational Medicine
DX: M54.50 Low back pain, unspecified (principal); M47.816 Spondylosis without myelopathy or radiculopathy, lumbar region
CPT/HCPCS: 64493; 64494; 72100; J0665; Q9967

== ENCOUNTER → 2023-11-06 11:04 | Outpatient (BNVA) | payer MEDICARE, SELFPAY | PROVIDERS: PCP Family Medicine; Referring Provider Family Medicine; Visit Provider Student in an Organized Health Care Education/Training Program | DX: S76.811D Strain of other specified muscles, fascia and tendons at thigh level, right thigh, subsequent encounter (principal); X58.XXXD Exposure to other specified factors, subsequent encounter; Z96.641 Presence of right artificial hip joint; G89.29 Other chronic pain ==

== ENCOUNTER 2023-11-15 10:47 | Outpatient (CLI) | payer MEDICARE, SELFPAY ==
--- NOTE | 2023-11-15 06:00 | DI.RAD_ITS ---
Exam(s) XR PAIN CLINIC LUMBAR SP 2V EXAM: XR PAIN CLINIC LUMBAR SP 2V CLINICAL HISTORY: DX: Lumbar spondylosis TECHNIQUE: 2D and realtime digital imaging was performed. CONTRAST MATERIAL: Refer to procedure report. COMPARISON: No exams were available for comparison FINDINGS: Fluoroscopy was provided for Dr. Kirkpatrick during the performance of a lumbar medial branch block. Clayton vargas refer to the procedure report for complete details. Ka,r=26.5 mGy IMPRESSION: RADIATION DOSE DELIVERED: 0.0 0.0 0
[2023-11-15 11:00] VITALS: BP 110/86; PULSE 93; RESP 20; TEMP 36.6; O2SAT 96
[2023-11-15] MEDS: Bupivacaine 0.5% Pres-Free 10 ML VIAL IJ (11:40)
[2023-11-15] MEDS: Omnipaque 240 MG/ML 50 ML BTL IJ (11:40)
[2023-11-15 11:41] VITALS: BP 119/93; PULSE 82; RESP 15; O2SAT 96
[2023-11-15] MEDS: Nerve Block Tray 1 EACH MC (11:41)
--- NOTE | 2023-11-20 06:09 | PDOC.PAIN_ITS ---
Date of service: 11/15/23 Time of Service: 12:00 Pain Managment Procedure Note Procedure Note Procedure Note: PROCEDURE NOTE Bilateral Lumbar Medial Branch Blocks #2 Date of Service: November 15, 2023 Patient: Kristel Gupta Provider: Baldo Kirkpatrick DO, MPH [place] Valorie Gupta has been referred to the [facility] for lumbar medial branch blocks. Pre-operative diagnosis: Lumbar Spondylosis without Myelopathy Post-operative diagnosis: Same Pre-procedure pain: VAS= 8/10 COMMENTS: She did well with her first LMBB Kristel? was interviewed and the medical records were reviewed. There were no medical, pharmacologic, radiographic or other structural contraindications to attempting fluoroscopically guided local anesthetic lumbar medial branch blocks. Risks and potential side effects were discussed. I also discussed the potential benefit(s) of the procedure with [place], and voiced concerns were addressed. After Kristel was completely informed about the procedure, the printed consent form was signed. A standard time-out procedure was performed. Kristel was placed in the prone position on the fluoroscopy table. Automated blood pressure cuff and pulse oximeter were applied. The skin entry points for approaching the anatomic target points of the segmental medial branches of bilateral L3,L4,L5 were identified with fluoroscopy and marked. The skin at the target site area was thoroughly prepared with Chlorhexadine. The skin was then draped. Next, a 25 gauge 3.5 spinal needle was placed under fluoroscopic guidance down on to the target point (the articular pillar) for each respective segmental medial branch. Position was confirmed in A/P and lateral views. Aspiration revealed no blood or clear fluid. Next, 0.25ml of omnipaque 240 was injected at each level. No contrast following a vascular or neural pattern was visualized under continuous fluoroscopy. Next, 0.25 ml of preservative-free 0.5% bupivicaine was injected at each level. There was no unusual discomfort expressed by Kristel. The needles were withdrawn without difficulty. (49 mls of Omnipaque was wasted) Kristel was observed and was without hemodynamic, neurologic, or allergic reactions.? Fluoroscopic images were digitally archived. Provacative testing using the Modified Archer's facet loading test- Left side Right Side Directly before the block VAS (0-10) = 8/10 VAS (0-10) = 8/10 Five minutes after the block VAS (0-10) = 0/10 VAS (0-10) = 0/10 Percentage relief obtained with this diagnostic block 100% 100% Any improved physical functioning directly after the blocks? Able to move with no pain Follow up plans and appointments were discussed with Kristel. Kristel was instructed to keep careful note of how the usual pain was modified by these injections. Specifically, to keep a pain diary for the next 4 hours using a numeric pain scale of 0-10 and report these results. Post procedure instruction was given as documented in the nursing documentation and having met discharge criteria, the patient was discharged from the [facility]. Based on the medial branches blocked today, if they patient has adequate relief and we are able to proceed to radiofrequency ablation, the treatment should result in the denervation of the bilateral L4-L5 and L5-S1 facet joints. We would expect to denervate a total of 4 facets during the radiofrequency ablation. COMMENTS: No apparent complications. Post-procedure pain: VAS= 0/10 Kristel will call back with 0-4 hour post-procedure pain scores. I personally performed the entire procedure. BALDO KIRKPATRICK DO, MPH ABPM&R-subspecialty board certification in Pain Medicine [facility] [facility]
== END 2023-11-15 10:48 | disposition home or self-care (01) ==
LOC: PC 10:47
PROVIDERS: PCP Family Medicine; Visit Provider Preventive Medicine Occupational Medicine
DX: M54.50 Low back pain, unspecified (principal); M47.816 Spondylosis without myelopathy or radiculopathy, lumbar region
CPT/HCPCS: 64493; 64494; 72100; J0665; Q9967

== ENCOUNTER 2024-02-21 10:53 | Outpatient (CLI) | payer MEDICARE, SELFPAY ==
[2024-02-21] VITALS (16 sets, daily range): BP systolic 101–128; BP diastolic 69–95; PULSE 65–77; RESP 12–20; TEMP 36.6; O2SAT 89–99
--- NOTE | 2024-02-21 06:00 | DI.RAD_ITS ---
Exam(s) XR PAIN CLINIC LUMBAR SP 2V EXAM: XR PAIN CLINIC LUMBAR SP 2V CLINICAL HISTORY: Dx: Lumbar spondylosis TECHNIQUE: 2D and realtime digital imaging was performed. CONTRAST MATERIAL: Refer to procedure report. COMPARISON: No exams were available for comparison FINDINGS: Fluoroscopy was provided for Dr. Kirkpatrick during the performance of a radiofrequency ablation. Please r efer to the procedure report for complete details. Ka,r=20.9 mGy IMPRESSION: RADIATION DOSE DELIVERED: 0.0 0.0 0
[2024-02-21] MEDS: Midazolam 2 MG/2 ML VIAL IVP (12:42)
[2024-02-21] MEDS: Lactated Ringers 500 ML 80 ML IV (12:42)
[2024-02-21] MEDS: fentaNYL 100 MCG/2 ML VIAL IVP (12:42)
[2024-02-21] MEDS: Lidocaine 2% Pres-Free 5 ML VIAL IJ (13:15)
[2024-02-21] MEDS: Nerve Block Tray 1 EACH MC (13:15)
[2024-02-21] MEDS: Bupivacaine 0.5% Pres-Free 10 ML VIAL IJ (13:15)
[2024-02-21] MEDS: methylPREDNISolone ACETATE 40 MG/ML VIAL IJ (13:16)
--- NOTE | 2024-02-21 14:23 | PDOC.PAIN ---
Date of service: 02/21/24 Time of Service: 13:30 Pain Managment Procedure Note Procedure Note Procedure Note: PROCEDURE NOTE BILATERAL LUMBAR RADIOFREQUENCY ABLATION Date of Service: February 21, 2024 Patient:? Kristel Gupta? Provider:? Baldo Kirkpatrick DO, MPH Kristel Gupta [facility] Bilateral Lumbar Radiofrequency Ablation with the Avanos Machine.? Pre Operative Diagnosis: Lumbosacral Spondylosis without Myelopathy Post Operative Diagnosis: Same Pre procedure pain; VAS= 5/10 Comments: She did well with the LMBBs PROCEDURE: Radiofrequency Ablation of medial branches - bilateral L3, L4, L5 and lateral branches of bilateral S1. Kristel?was interviewed and the medical record was reviewed.? There were no medical, pharmacologic, radiographic or other structural contraindications to attempting fluoroscopically guided BILATERAL Lumbar Radiofrequency Ablation.?Risks and expected side effects as well as potential benefit of the procedure were reviewed with Kristel, and the patient's voiced concerns were addressed.? The printed consent form was signed.? Standard time-out procedure was performed. Kristel was brought into the fluoroscopy suite and positioned into the prone position on the fluoroscopy table and allowed to adjust to a position of comfort. A grounding pad was placed on the left abdomen. The sterile field was prepared using chlorhexidine preparation of the skin and sterile draping. Local anesthesia superficial and deep was provided by local infiltration of 2% lidocaine. A 17g 100 mm radiofrequency introducer needle was placed to the planned anatomic targets guided with intermittent fluoroscopy with a perpendicular approach to terminally place at the junction of the superior articular process and the transverse process of the bilateral L4, L5, the base of the sacral ala on the bilateral for the L5 medial branch nerve and the area between base of the sacral ala to the S1 foramen bilaterally. The stylets were removed and radiofrequency probes with a 4mm active tip were then inserted. Needle tip position of the probes was verified in the AP, oblique, and lateral views. At each site, the medial branch nerve was stimulated at 2 Hz to a maximum 1-2 volts determined to finalize safe needle and electrode placement. The patient was awake and responsive during this portion of the procedure. Each target was anesthetized with 1-2 mL of 2 % Lidocaine for anesthesia for lesioning and then each target was lesioned at 80 degrees Celsius for 2 minutes and 30 seconds. Tissue impedances were noted to be between 250 and 500 Ohms. There was no unusual discomfort expressed by Kristel. The needles were withdrawn without difficulty and bandages placed over the needle placement sites, the patient was observed and was without hemodynamic, neurologic, or allergic reactions. Fluoroscopic images were digitally archived. POST PROCEDURE EVALUATION: IMPRESSION: 1. Summary of procedure. Medication given is documented in the MAR. 2. Follow up plan: Kristel to contact [facility] needed.?This procedure may be repeated if the patient achieves at least 50% improvement in pain/function for at least 6 months. 3. Estimated Blood Loss: <5 mls 4. Fluoroscopy time: Documented in the EMR. Follow up plans and appointments were discussed with the Kristel. Post procedure instruction was given as documented in nursing documentation and having met discharge criteria, Kristel was discharged from the [facility]. COMMENTS: No apparent complications. Post-procedure pain: VAS= 1/10. I personally completed the entire procedure. BALDO KIRKPATRICK DO, MPH ABPM&R - Subspecialty board certification in Pain Medicine [facility]
== END 2024-02-21 10:54 | disposition home or self-care (01) ==
LOC: PC 10:54
PROVIDERS: PCP Family Medicine; Visit Provider Preventive Medicine Occupational Medicine
DX: M47.817 Spondylosis without myelopathy or radiculopathy, lumbosacral region (principal); M54.50 Low back pain, unspecified
CPT/HCPCS: 64635; 64636; 72100; 93284; J0665; J1010; J2250; J3010

== ENCOUNTER → 2024-02-21 13:52 | Outpatient (BNVA) | payer MEDICARE, SELFPAY | PROVIDERS: PCP Family Medicine; Referring Provider Family Medicine; Visit Provider Student in an Organized Health Care Education/Training Program | DX: Z95.810 Presence of automatic (implantable) cardiac defibrillator (principal) | CPT/HCPCS: 93284 ==

== ENCOUNTER 2024-06-04 13:32 | Outpatient (CLI) | payer MEDICARE, SELFPAY ==
[2024-06-04 13:36] VITALS: BP 128/87; PULSE 83; RESP 20; TEMP 36.7; O2SAT 98
--- NOTE | 2024-06-04 13:58 | PDOC.PAIN ---
Date of service: 06/04/24 Time of Service: 14:14 Pain Managment Procedure Note Procedure Note Procedure Note: ?Sacroiliac Joint Steroid Injection ? Location: ?? Left SI joint ? Pre-procedure Diagnosis: Sacroiliitis, not elsewhere classified - M46.1 ? Post-procedure Diagnosis:? The same as above ? Sedation:? NONE ? Medication: Depo-Medrol 40 mg, bupivacaine 0.5% 1 mL, Omnipaque 0.25 mL per joint ? Estimated blood loss:? less than 2 cc ? Surgeon:? Denzel Marie MD ? COMMENT: THIS WILL BE BOTH DIAGNOSTIC AND THERAPEUTIC ? Procedure Detail:? The procedure and potential risks were explained to the patient and informed written consent was obtained. The patient was escorted to the procedure room and placed in the prone position. Pillows were utilized for proper positioning and comfort. Time out was performed in the procedure room with nursing staff confirming the patient's identity, procedure to be performed, allergies, and any blood thinning or anti-platelet medications. The patient's lumbosacral area was prepped with ChloraPrep and draped in a sterile fashion. Sterile technique was maintained throughout the procedure.? Sterile gloves were used, a face mask was worn, and new single dose vials of all medications were used with the top being swabbed with alcohol and given time to dry prior to withdrawal of medication. Lidocaine 1% was used to anesthetize the skin. With fluoroscopic guidance, a 22-gauge 3.5 spinal needle was advanced into the posteroinferior aspect of the Left SI joint . Confirmation of intra-articular position of the needle tip was obtained with injection of 0.25cc of Omnipaque 240 contrast which showed appropriate spread within the joint.? Following negative aspiration, 40mg of methylprednisolone mixed with 1 mL of bupivacaine 0.5% was injected.? The needle was gently removed. ?The patient tolerated the procedure well and was transported to the recovery area for observation and discharge instructions.? Permanent images saved and recorded. Plan:? Follow up prn. PAIN PRE PROCEDURE 8/10 POST PROCEDURE 0/10 COMMENT: [100] % BETTER AFTER INJECTION. 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 Would consider epidural steroid injection transforaminal approach at that level if symptoms do not improve or updating MRI
--- NOTE | 2024-06-04 14:11 | DI.RAD_ITS ---
Exam(s) XR PAIN CLINIC SACRIOILIAC 2V EXAM: XR PAIN CLINIC SACRIOILIAC 2V CLINICAL HISTORY: Dx: Sacroiliac Joint Dysfunction TECHNIQUE: 2D and realtime digital imaging was performed. CONTRAST MATERIAL: Refer to procedure report. COMPARISON: No exams were available for comparison FINDINGS: Fluoroscopy was provided for Dr. Marie during the performance of a left sacroiliac joint injection . Please refer to the procedure report for complete details. Ka,r=11.3 mGy IMPRESSION: RADIATION DOSE DELIVERED: 0.0 0.0 0
[2024-06-04] MEDS: Bupivacaine 0.5% Pres-Free 10 ML VIAL IJ (14:19)
[2024-06-04] MEDS: Omnipaque 240 MG/ML 50 ML BTL IJ (14:19)
[2024-06-04] MEDS: methylPREDNISolone ACETATE 80 MG/ML VIAL IJ (14:19)
[2024-06-04] MEDS: Nerve Block Tray 1 EACH MC (14:23)
[2024-06-04 14:24] VITALS: PULSE 81; O2SAT 97
== END 2024-06-04 13:33 | disposition home or self-care (01) ==
LOC: PC 13:32
PROVIDERS: PCP Family Medicine; Visit Provider Anesthesiology Pain Medicine
DX: M46.1 Sacroiliitis, not elsewhere classified (principal); M54.50 Low back pain, unspecified
CPT/HCPCS: 00123; 27096; 72200; J0665; J1010; Q9967

== ENCOUNTER 2024-11-21 14:39 | Outpatient (CLI) | payer MEDICARE, SELFPAY ==
[2024-11-21 15:07] VITALS: BP 111/73; PULSE 82; RESP 20; TEMP 36.3; O2SAT 93
--- NOTE | 2024-11-21 15:15 | DI.RAD_ITS ---
Exam(s) XR PAIN CLINIC LUMBAR SP 2V EXAM: XR PAIN CLINIC LUMBAR SP 2V CLINICAL HISTORY: DX: Lumbar Spondylosis TECHNIQUE: 2D and realtime digital imaging was performed. CONTRAST MATERIAL: Refer to procedure report. COMPARISON: No exams were available for comparison FINDINGS: Fluoroscopy was provided for Dr. Kirkpatrick during the performance of a bilateral lumbar medial branch blo ck. Please refer to the procedure report for complete details. Ka,r=24.7 mGy IMPRESSION: RADIATION DOSE DELIVERED: 0.0 0.0 0
--- NOTE | 2024-11-21 15:32 | PDOC.PAIN_ITS ---
Date of service: 11/21/24 Time of Service: 15:32 Pain Managment Procedure Note Procedure Note Procedure Note: PROCEDURE NOTE Bilateral Lumbar Medial Branch Blocks Date of Service: November 21, 2024 Patient: Kristel Gupta Provider: Modesta Kirkpatrick DO, MPH Kristel Valorie Gupta has been [facility] for lumbar medial branch blocks. Pre-operative diagnosis: Lumbar Spondylosis without Myelopathy ICD-10 M47.816 Post-operative diagnosis: Same Pre-procedure pain: VAS= 9/10 COMMENTS: I previously evaluated her in the office. Abimael was interviewed and the medical records were reviewed. There were no medical, pharmacologic, radiographic or other structural contraindications to attempting fluoroscopically guided local anesthetic lumbar medial branch blocks. Risks and potential side effects were discussed. I also discussed the potential benefit(s) of the procedure with Abercrombie, and voiced concerns were addressed. After Kristel was completely informed about the procedure, the printed consent form was signed. A standard time-out procedure was performed. Kristel was placed in the prone position on the fluoroscopy table. Automated blood pressure cuff and pulse oximeter were applied. The skin entry points for approaching the anatomic target points of the segmental medial branches of bilateral L3,L4,L5 were identified with fluoroscopy and marked. The skin at the target site area was thoroughly prepared with Chlorhexadine. The skin was then draped. Next, a 25 gauge 3.5 spinal needle was placed under fluoroscopic guidance down on to the target point (the articular pillar) for each respective segmental medial branch. Position was confirmed in A/P and lateral views. Aspiration revealed no blood or clear fluid. Next, 0.25ml of omnipaque 240 was injected at each level. No contrast following a vascular or neural pattern was visualized under continuous fluoroscopy. Next, 0.25 ml of preservative-free 0.5% bupivicaine was injected at each level. There was no unusual discomfort expressed by Kristel. The needles were withdrawn without difficulty. (49 mls of Omnipaque was wasted) Kristel was observed and was without hemodynamic, neurologic, or allergic reactions.? Fluoroscopic images were digitally archived. Provacative testing using the Modified Archer's facet loading test- Left side Right Side Directly before the block VAS (0-10) = 9/10 VAS (0-10) = 9/10 Five minutes after the block VAS (0-10) = 0/10 VAS (0-10) = 0/10 Percentage relief obtained with this diagnostic block 100% 100% Any improved physical functioning directly after the blocks? Able to move her back without issues Follow up plans and appointments were discussed with Kristel. Abercrombie was instructed to keep careful note of how the usual pain was modified by these injections. Specifically, to keep a pain diary for the next 4 hours using a numeric pain scale of 0-10 and report these results. Post procedure instruction was given as documented in the nursing documentation and having met discharge criteria, the patient was [facility] from the [facility]. Based on the medial branches blocked today, if they patient has adequate relief and we are able to proceed to radiofrequency ablation, the treatment should result in the denervation of the bilateral L4-L5 and L5-S1 facet joints. We would expect to denervate a total of 4 facets during the radiofrequency ablation. COMMENTS: No apparent complications. Post-procedure pain: VAS= 0/10 Kristel will call back with 0-4 hour post-procedure pain scores. I personally performed the entire procedure. MODESTA KIRKPATRICK DO, MPH ABPM&R-subspecialty board certification in Pain Medicine [facility] Coding Conscious Sedation used for procedure: No CPT Codes: LMBB (includes Fluoro) Lumbar/Sacral, 2nd lvl - 45524 ([id number] ~G) LMBB (includes Fluoro) Lumbar/Sacral, single lvl *BILATERAL* - [id number] ([id number]~G5) Additional Codes: Date of Service (24806) Date of service: 11/21/24
[2024-11-21 15:33] VITALS: PULSE 77; PULSE 81; RESP 24; O2SAT 90
[2024-11-21 15:34] VITALS: BP 152/93; PULSE 75; RESP 15; O2SAT 95
[2024-11-21 15:40] VITALS: PULSE 78; RESP 11; O2SAT 96
[2024-11-21 15:46] VITALS: BP 144/107; PULSE 78; PULSE 83; RESP 15; O2SAT 96
[2024-11-21 15:52] VITALS: BP 121/85; PULSE 87
[2024-11-21] MEDS: Bupivacaine 0.5% Pres-Free 10 ML VIAL IJ (15:59)
[2024-11-21] MEDS: Omnipaque 240 MG/ML 50 ML BTL IJ (16:00)
[2024-11-21] MEDS: Nerve Block Tray 1 EACH MC (16:00)
== END 2024-11-21 14:40 | disposition home or self-care (01) ==
LOC: PC 14:40
PROVIDERS: PCP Family Medicine; Visit Provider Preventive Medicine Occupational Medicine
DX: M47.816 Spondylosis without myelopathy or radiculopathy, lumbar region (principal); M54.50 Low back pain, unspecified
CPT/HCPCS: 64493; 64494; 72100; J0665; Q9967

== ENCOUNTER → 2024-11-29 08:17 | Outpatient (BNVA) | payer MEDICARE, SELFPAY | PROVIDERS: PCP Family Medicine; Referring Provider Family Medicine; Visit Provider Physician Assistant | DX: M70.61 Trochanteric bursitis, right hip (principal) | CPT/HCPCS: 20610; J1010 ==

== ENCOUNTER 2024-12-05 09:14 | Outpatient (CLI) | payer MEDICARE, SELFPAY ==
[2024-12-05 09:23] VITALS: BP 101/76; PULSE 90; RESP 20; TEMP 36.7; O2SAT 98
[2024-12-05 09:45] VITALS: PULSE 86; RESP 12; O2SAT 96
[2024-12-05 09:46] VITALS: BP 107/71; PULSE 78; PULSE 84; RESP 20; O2SAT 96
[2024-12-05 09:50] VITALS: PULSE 80; RESP 19; O2SAT 95
--- NOTE | 2024-12-05 10:02 | PDOC.PAIN_ITS ---
Date of service: 12/05/24 Time of Service: 10:02 Pain Managment Procedure Note Procedure Note Procedure Note: PROCEDURE NOTE Bilateral Lumbar Medial Branch Blocks #2 Date of Service: December 05, 2024 Patient: Kristel Gupta Provider: Baldo Kirkpatrick DO, MPH Rienzira Valorie Gupta has been referred to the [facility] for lumbar medial branch blocks. Pre-operative diagnosis: Lumbar Spondylosis without Myelopathy ICD-10 M47.816 Post-operative diagnosis: Same Pre-procedure pain: VAS= 8/10 COMMENTS: She did very well with her first LMBB Kristel? was interviewed and the medical records were reviewed. There were no medical, pharmacologic, radiographic or other structural contraindications to attempting fluoroscopically guided local anesthetic lumbar medial branch blocks. Risks and potential side effects were discussed. I also discussed the potential benefit(s) of the procedure with Kristel, and voiced concerns were addressed. After Kristel was completely informed about the procedure, the printed consent form was signed. A standard time-out procedure was performed. Kristel was placed in the prone position on the fluoroscopy table. Automated b lood pressure cuff and pulse oximeter were applied. The skin entry points for approaching the anatomic target points of the segmental medial branches of bilateral L1, L2, and L3 were identified with fluoroscopy and marked. The skin at the target site area was thoroughly prepared with Chlorhexadine. The skin was then draped. Next, a 25 gauge 3.5 spinal needle was placed under fluoroscopic guidance down on to the target point (the articular pillar) for each respective segmental medial branch. Position was confirmed in A/P and lateral views. Aspiration revealed no blood or clear fluid. Next, 0.25ml of omnipaque 240 was injected at each level. No contrast following a vascular or neural pattern was visualized under continuous fluoroscopy. Next, 0.25 ml of preservative-free 0.5% bupivicaine was injected at each level. There was no unusual discomfort expressed by Kristel. The needles were withdrawn without difficulty. (49 mls of Omnipaque was wasted) Kristel was observed and was without hemodynamic, neurologic, or allergic reactions.? Fluoroscopic images were digitally archived. Provacative testing using the Modified Archer's facet loading test- Left side Right Side Directly before the block VAS (0-10) = 8/10 VAS (0-10) = 8/10 Five minutes after the block VAS (0-10) = 0/10 VAS (0-10) = 0/10 Percentage relief obtained with this diagnostic block 100% 100% Any improved physical functioning directly after the blocks? Able to move her low back much better. Follow up plans and appointments were discussed with Kristel. Kristel was instructed to keep careful note of how the usual pain was modified by these injections. Specifically, to keep a pain diary for the next 4 hours using a numeric pain scale of 0-10 and report these results. Post procedure instruction was given as documented in the nursing documentation and having met discharge criteria, the patient was [facility] from the [facility]. Based on the medial branches blocked today, if they patient has adequate relief and we are able to proceed to radiofrequency ablation, the treatment should result in the denervation of the bilateral L2-L3 and L3-L4 facet joints. We would expect to denervate a total of 4 facets during the radiofrequency ablation. COMMENTS: No apparent complications. Post-procedure pain: VAS= 0/10 Kristel will call back with 0-4 hour post-procedure pain scores. I personally performed the entire procedure. BALDO KIRKPATRICK DO, MPH ABPM&R-subspecialty board certification in Pain Medicine [facility] Coding Conscious Sedation used for procedure: No CPT Codes: LMBB (includes Fluoro) Lumbar/Sacral, single lvl *BILATERAL* - [id number] ([id number]~G5) LMBB (includes Fluoro) Lumbar/Sacral, 2nd lvl - 42441 ([id number] ~G) Additional Codes: Date of Service (67000) Date of service: 12/05/24
[2024-12-05 10:04] VITALS: BP 155/123; PULSE 88
--- NOTE | 2024-12-05 10:06 | DI.RAD_ITS ---
Exam(s) XR PAIN CLINIC LUMBAR SP 2V EXAM: XR PAIN CLINIC LUMBAR SP 2V CLINICAL HISTORY: DX: Lumbar Spondylosis TECHNIQUE: 2D and realtime digital imaging was performed. CONTRAST MATERIAL: Refer to procedure report. COMPARISON: No exams were available for comparison FINDINGS: Fluoroscopy was provided for Dr. Kirkpatrick during the performance of a bilateral lumbar medial branch blo ck. Please refer to the procedure report for complete details. Ka,r=20.7 mGy IMPRESSION: RADIATION DOSE DELIVERED: 0.0 0.0 0
[2024-12-05 10:07] VITALS: BP 114/92
[2024-12-05] MEDS: Bupivacaine 0.5% Pres-Free 10 ML VIAL IJ (10:09)
[2024-12-05] MEDS: Omnipaque 240 MG/ML 50 ML BTL IJ (10:09)
[2024-12-05] MEDS: Nerve Block Tray 1 EACH MC (10:11)
== END 2024-12-05 09:15 | disposition home or self-care (01) ==
LOC: PC 09:14
PROVIDERS: PCP Family Medicine; Visit Provider Preventive Medicine Occupational Medicine
DX: M47.816 Spondylosis without myelopathy or radiculopathy, lumbar region (principal); M54.50 Low back pain, unspecified
CPT/HCPCS: 64493; 64494; 72100; J0665; Q9967

== ENCOUNTER 2025-01-15 11:52 | Outpatient (CLI) | payer MEDICARE, SELFPAY ==
[2025-01-15] VITALS (18 sets, daily range): BP systolic 93–132; BP diastolic 68–88; PULSE 72–88; RESP 13–21; TEMP 36.8; O2SAT 87–96
[2025-01-15] MEDS: Midazolam 2 MG/2 ML VIAL IVP (13:00)
[2025-01-15] MEDS: fentaNYL 100 MCG/2 ML VIAL IJ (13:15)
[2025-01-15] MEDS: Lactated Ringers 500 ML 30 ML IV (13:17)
--- NOTE | 2025-01-15 13:34 | DI.RAD_ITS ---
Exam(s) XR PAIN CLINIC LUMBAR SP 2V EXAM: XR PAIN CLINIC LUMBAR SP 2V CLINICAL HISTORY: DX: Lumbar Spondylosis TECHNIQUE: 2D and realtime digital imaging was performed. CONTRAST MATERIAL: Refer to procedure report. COMPARISON: No exams were available for comparison FINDINGS: Fluoroscopy was provided for Dr. Kirkpatrick during the performance of a bilateral radiofrequency ablation. Please refer to the procedure report for complete details. Ka,r=25.4 mGy IMPRESSION: RADIATION DOSE DELIVERED: 0.0 0.0 0
--- NOTE | 2025-01-15 13:38 | PDOC.PAIN_ITS ---
Date of service: 01/15/25 Time of Service: 13:39 Pain Managment Procedure Note Procedure Note Procedure Note: PROCEDURE NOTE BILATERAL LUMBAR RADIOFREQUENCY ABLATION Date of Service: January 15, 2025 Patient:? Kristel Gupta? Provider:? Baldo Kirkpatrick DO, MPH Kristel Gupta has been [facility] to [facility] Bilateral Lumbar Radiofrequency Ablation with the Feathrs Machine.? Pre Operative Diagnosis: Lumbosacral Spondylosis without Myelopathy ICD-10 M47.816 Post Operative Diagnosis: Same Pre procedure pain; VAS= 7/10 Comments: She had great relief with the bilateral L1-L3 lumbar medial branch blocks PROCEDURE: Radiofrequency Ablation of medial branches - bilateral L1, L2, and L3. Abimaelwas interviewed and the medical record was reviewed.? There were no medical, pharmacologic, radiographic or other structural contraindications to attempting fluoroscopically guided BILATERAL Lumbar Radiofrequency Ablation.?Risks and expected side effects as well as potential benefit of the procedure were reviewed with Kristel, and the patient's voiced concerns were addressed.? The printed consent form was signed.? Standard time-out procedure was performed. Kristel was brought into the fluoroscopy suite and positioned into the prone position on the fluoroscopy table and allowed to adjust to a position of comfort. A grounding pad was placed on the left abdomen. The sterile field was prepared using chlorhexidine preparation of the skin and sterile draping. Local anesthesia superficial and deep was provided by local infiltration of 2% lidocaine. A 17g 100 mm radiofrequency introducer needle was placed to the planned anatomic targets guided with intermittent fluoroscopy with a perpendicular approach to terminally place at the junction of the superior articular process and the transverse process of the bilateral L1, L2, and L3. The stylets were removed and radiofrequency probes with a 4mm active tip were then inserted. Needle tip position of the probes was verified in the AP, oblique, and lateral views. At each site, the medial branch nerve was stimulated at 2 Hz to a maximum 1-2 volts determined to finalize safe needle and electrode placement. The patient was awake and responsive during this portion of the procedure. Each target was anesthetized with 1-2 mL of 2 % Lidocaine for anesthesia for lesioning and then each target was lesioned at 80 degrees Celsius for 2 minutes and 30 seconds. Tissue impedances were noted to be between 250 and 500 Ohms. Next, I injected 1/3 cc of Depomedrol (40 mg/cc) followed by 1 cc of 0.5% Bupivacain. There was no unusual discomfort expressed by Kristel. The needles were withdrawn without difficulty and bandages placed over the needle placement sites, the patient was observed and was without hemodynamic, neurologic, or allergic reactions. Fluoroscopic images were digitally archived. POST PROCEDURE EVALUATION: IMPRESSION: 1. Summary of procedure. Medication given is documented in the MAR. 2. Follow up plan: Kristel to contact [facility] needed.?This procedure may be repeated if the patient achieves at least 50% improvement in pain/function for at least 6 months. 3. Estimated Blood Loss: <5 mls 4. Fluoroscopy time: Documented in the EMR. Follow up plans and appointments were discussed with the Kristel. Post procedure instruction was given as documented in nursing documentation and having met discharge criteria, Kristel was [facility] from the [facility]. This advanced procedure uses cooled radiofrequency energy to safely target the sensory nerves responsible for sending pain signals.1 A radiofrequency generator transmits a small current of Radiofrequency energy through an insulated electrode, or probe, placed within tissue. Ionic heating, produced by the friction of charged molecules, thermally deactivates the nerves responsible for sending pain signals to the brain. Radiofrequency energy heats and cools the tissue at the site of pain. Unlike other Radiofrequency procedures, Coolief circulates water through the device while heating nervous tissue to create a larger treatment area, increasing the opportunity to help with pain. This combination targets the pain- transmitting nerves without excessive heating, leading to pain relief. COMMENTS: No apparent complications. Post-procedure pain: VAS= 0/10. She was evaluated by cardiology directly after this procedure. I personally completed the entire procedure. BALDO KIRKPATRICK DO, MPH ABPM&R - Subspecialty board certification in Pain Medicine [facility] Coding Conscious Sedation used for procedure: Yes CPT Codes: Single Facet Joint, Lumbar/Sacral *BILATERAL* - 017853A ([id number]~G) Single Facet Joint, Lumbar/Sacral cool each add'l - 71825F ([id number]~G) Additional Codes: Date of Service (18028) Date of service: 01/15/25 Diagnoses: Lumbosacral spondylosis without myelopathy
[2025-01-15] MEDS: methylPREDNISolone ACETATE 40 MG/ML VIAL IJ (13:42)
[2025-01-15] MEDS: Nerve Block Tray 1 EACH MC (13:43)
[2025-01-15] MEDS: Bupivacaine 0.5% Pres-Free 10 ML VIAL IJ (13:47)
[2025-01-15] MEDS: Lidocaine 2% Multi-Dose 20 ML VIAL IJ (13:47)
== END 2025-01-15 11:53 | disposition home or self-care (01) ==
LOC: PC 11:52
PROVIDERS: PCP Family Medicine; Visit Provider Preventive Medicine Occupational Medicine
DX: M54.50 Low back pain, unspecified (principal); M47.816 Spondylosis without myelopathy or radiculopathy, lumbar region
CPT/HCPCS: 64635; 64636; 72100; 93281; J0665; J1010; J2003; J2250; J3010

== ENCOUNTER → 2025-01-15 14:27 | Outpatient (BNVA) | payer MEDICARE, SELFPAY | PROVIDERS: PCP Family Medicine; Referring Provider Family Medicine; Visit Provider Registered Nurse | DX: Z79.01 Long term (current) use of anticoagulants (principal); Z79.02 Long term (current) use of antithrombotics/antiplatelets; Z45.018 Encounter for adjustment and management of other part of cardiac pacemaker | CPT/HCPCS: 93281 ==

== ENCOUNTER → 2025-05-26 14:37 | Outpatient (BNVA) | payer MEDICARE, SELFPAY | PROVIDERS: PCP Family Medicine; Referring Provider Family Medicine; Visit Provider Student in an Organized Health Care Education/Training Program | DX: M70.61 Trochanteric bursitis, right hip (principal); Z96.641 Presence of right artificial hip joint | CPT/HCPCS: 20610; J1010 ==